=== PATIENT | male | born 1960 | race Caucasian/White ===

== ENCOUNTER 2017-01-10 15:13 | Emergency (ER) | payer SELFPAY ==
[~2017-01-10] VITALS: Ht 167.6 cm; Wt 61.4 kg
[~2017-01-10 15:13] MED LIST: BUSP10 PO; RISP3TAB23 OR; WELL200T PO
[2017-01-10 15:15] VITALS: BP 137/79; PULSE 87; RESP 14; TEMP 98.1; O2SAT 98
== END 2017-01-10 15:22 | disposition left against medical advice (07) ==
LOC: NED 15:13
DX: M54.2 Cervicalgia (principal); Z53.21 Procedure and treatment not carried out due to patient leaving prior to being seen by health care provider
CPT/HCPCS: 99281

== ENCOUNTER 2018-08-09 09:40 | Inpatient (IN) ==
[2018-08-09] MEDS ORDERED: Sod Chloride 0.9% Inj 1,000 ML IV.SIG ONE ×2 (10:30→11:08)
[2018-08-09 10:55] LABS: Baso # (Auto) 0.1 th/mm3 (0.0-0.2); Baso % (Auto) 0.5 % (0.0-2.0); Eos # (Auto) 0.1 th/mm3 (0.0-0.4); Eos % (Auto) 0.3 % (0.0-4.0); Hemoglobin 11.9 gm/dL (13.0-17.0); Lymph # (Auto) 1.5 th/mm3 (1.0-4.8); Mean Corpuscular HGB Conc 32.9 % (32.0-36.0); Mean Platelet Volume 8.2 fL (7.0-11.0); Mono % (Auto) 4.7 % (0.0-8.0); Neut # (Auto) 18.8 th/mm3 (1.8-7.7); Neut % (Auto) 87.5 % (16.0-70.0); Platelet Count 403 th/mm3 (150-450); Red Blood Count 4.09 mil/mm3 (4.50-5.90); Red Cell Distribution Width 13.6 % (11.6-17.2); White Blood Count 21.5 th/mm3 (4.0-11.0)
[2018-08-09] MEDS ORDERED: Acetaminophen 325 MG Tablet PO ONE (11:07)
[2018-08-09] MEDS ORDERED: Morphine Inj 4 MG/ML Vial IV.PUSH ONE (11:15)
--- NOTE | 2018-08-09 11:15 | ED ---
HPI General Chief Complaint: Abdominal Pain Stated Complaint: GI Time Seen by Provider: 08/09/18 10:28 Source: patient, RN notes reviewed and old records reviewed Limitations: no limitations History of Present Illness HPI narrative: 58-year-old male presents to the emergency department for evaluation abdominal pain, fever, chills, diarrhea for 1 week. Patient does not speak. He writes and shakes his head to questions. He does state that he understands me. When asked if he is capable of speaking but chooses not to, he shakes his head yes. The patient does have history of schizophrenia according to the chart. He will not talk at all. The patient denies any chest pain, cough, shortness of breath. He denies nausea and vomiting. He reports right- sided abdominal pain. He denies having chronic medical problems or taking prescribed medications. He denies allergies. He denies alcohol abuse. He denies any drug use. Moderate severity. He denies any previous abdominal surgeries. MD complaint: abdominal pain Onset (ago): week(s) (1) Pain Consistency: constant Location: RUQ and RLQ Severity: moderate Quality: aching Radiation: none Relieving factors: nothing Exacerbating factors: nothing Associated symptoms: diarrhea, fever and chills Related Data Home Medications Medication Instructions Recorded Confirmed No Known Home Medications 08/09/18 08/09/18 Allergies Allergy/AdvReac Type Severity Reaction Status Date / Time No Known Allergies Allergy Unverified 08/09/18 10:08 Review of Systems ROS: all other systems reviewed are negative PMFSH Medical History Medical History Patient denies medical problems (Acute) Surgical History Surgical History No history of previous surgery (Acute) Social History Social History Smoking Status: Former smoker Tobacco Type: Cigarettes How Often Do You Have a Drink Containing Alcohol: Monthly or less Recent Travel in [facility] within the Last 8 Weeks: No Recent Out of Country Travel within the Last 8 Weeks: No Immunization History Tetanus Immunization: Unsure Exam Narrative Exam Narrative: GENERAL: Well-nourished, well-developed male patient, temp of 101.2 SKIN: Focused skin assessment warm/dry. HEAD: Normocephalic. Atraumatic ENT: Mucosa pink and moist. No erythema or exudates. No uvular edema. No uvular , palatal, or tonsillar deviation. Airway patent. Nasal turbinates appear normal without nasal blood, purulent drainage or septal hematoma. Bilateral tympanic membranes clear without erythema or perforation. EYES: No scleral icterus. No injection or drainage. NECK: Supple, trachea midline. No JVD or lymphadenopathy. CARDIOVASCULAR: Regular rate and rhythm without murmurs, gallops, or rubs. RESPIRATORY: Breath sounds equal bilaterally. No accessory muscle use. Lung sounds are clear to auscultation GASTROINTESTINAL: Abdomen soft and nondistended. He grimaces over tenderness to RUQ and RLQ MUSCULOSKELETAL: No cyanosis, or edema. BACK: Nontender without obvious deformity. No CVA tenderness. Course Initial Documented Vital Signs Temperature 101.2 F H 08/09/18 09:58 Pulse Rate 89 08/09/18 09:58 Respiratory Rate 16 08/09/18 09:58 Blood Pressure 111/58 L 08/09/18 09:58 Pulse Oximetry 98 08/09/18 09:58 Last Documented Vital Signs Temperature 101.2 F H 08/09/18 09:58 Pulse Rate 89 08/09/18 09:58 Respiratory Rate 16 08/09/18 09:58 Blood Pressure 111/58 L 08/09/18 09:58 Pulse Oximetry 98 08/09/18 12:07 Medical Decision Making ALEXUS Attestation ALEXUS supervised visit: Yes Attestation: I, Dr. Govea, have reviewed the advance practice practitioner's documentation and am in agreement, met with the patient face to face, made the diagnosis, and the medical decision making was done by me. *My assessment and Findings: This patient is electively mute. He will write. He comes in with a one-week history of abdominal pain associated with some diarrhea. On exam, his abdomen is soft but he does have some tenderness to the lateral aspect of the right mid abdomen. No guarding or rebound. Please see Betsy Sanchez NP's note for a more detailed H&P, final diagnosis and disposition MDM Narrative Medical decision making narrative: 58-year-old male presents to the emergency department for evaluation of abdominal pain, fever, chills, diarrhea for 1 week. He will not speak, but writes and shakes his head to questions. This does limit history. EKG, CBC, CMP, magnesium, lactic acid, lipase, UA, stool for c-diff, influenza, blood cultures x2 are ordered and pending. Chest x-ray and CT abdomen/pelvis with IV contrast ordered and pending. Patient is given normal saline 2 L IV bolus, Morphine 4 mg IV, Zofran 4 mg IV, Tylenol 650 mg PO. EKG shows sinus rhythm, heart rate 68, no acute ST changes. CBC shows leukocytosis of 21.5. CMP shows hyperglycemia 118, no acute abnormality. Magnesium is 1.9. Lactic acid is 0.8. Lipase is 183. UA shows moderate occult blood, rare bacteria. Stool is pending. Influenza is negative. Chest x -ray shows minimal airspace disease in the left lung base, presumably atelectasis. CT abdomen/pelvis shows Complex 4.5 x 3.8 cm mass containing septations in the inferior segment 6 of the liver with adjacent. Pericapsular inflammatory stranding and suspected segmental thrombosed probable hepatic vein branch. Underlying liver parenchyma appears unremarkable without evidence for volume loss. Differential considerations include hepatic abscess versus hepatic malignancy although abscess is favored given the apparently normal appearance of the liver by CT. Correlation with clinical history and laboratory evaluation is recommended. Patient started on vancomycin 1 g IV, Zosyn 3.375 g IV. Patient will be admitted for hepatic abscess, sepsis. Dr. Ho accepted admission. Medical Screen Exam Complete: Yes Emergency Medical Condition: Yes Differential Diagnosis Differential Diagnosis: Cholecystitis versus appendicitis versus diverticulitis versus UTI versus sepsis Medical Records Medical records reviewed: Yes I reviewed the patient's medical records. Lab Data Result diagrams: 08/09/18 10:39 08/09/18 10:39 Lab Results 08/09/18 08/09/18 08/09/18 Range/Units 10:39 10:39 11:28 WBC 21.5 H (4.0-11.0) th/mm3 RBC 4.09 L (4.50-5.90) mil/mm3 Hgb 11.9 L (13.0-17.0) gm/dL Hct 36.0 L (39.0-51.0) % MCV 88.0 (80.0-100.0) fL MCH 29.0 (27.0-34.0) pg MCHC 32.9 (32.0-36.0) % RDW 13.6 (11.6-17.2) % Plt Count 403 (150-450) th/mm3 MPV 8.2 (7.0-11.0) fL Prelim Diff (Auto) Slide review pending Neut % (Auto) 87.5 H (16.0-70.0) % Lymph % (Auto) 7.0 L (9.0-44.0) % [place] % (Auto) 4.7 (0.0-8.0) % Eos % (Auto) 0.3 (0.0-4.0) % Baso % (Auto) 0.5 (0.0-2.0) % Neut # (Auto) 18.8 H (1.8-7.7) th/mm3 Lymph # (Auto) 1.5 (1.0-4.8) th/mm3 [place] # (Auto) 1.0 H (0.0-0.9) th/mm3 Eos # (Auto) 0.1 (0.0-0.4) th/mm3 Baso # (Auto) 0.1 (0.0-0.2) th/mm3 WBC Differential Manual diff final Seg Neuts % (Manual) 80 H (16-70) % Band Neuts % (Manual) 3 (0-6) % Lymphocytes % (Manual) 11 (9-44) % Monocytes % (Manual) 4 (0-8) % Myelocytes % (Man) 1 H (0-0) % Promyelocytes % (Man) 1 H (0-0) % Abs Neuts (Manual) 18.3 H (1.8-7.7) th/mm3 Differential Comment . Platelet Estimate Normal (Normal) Platelet Morphology Normal (Normal) PT 11.0 (9.8-11.6) sec INR 1.1 Ratio APTT 26.6 (24.3-30.1) sec Sodium 135 L (136-145) meq/L Potassium 3.8 (3.5-5.1) meq/L Chloride 101 (98-107) meq/L Carbon Dioxide 24.9 (21.0-32.0) meq/L Anion Gap 9 (5-15) meq/L BUN 13 (7-18) mg/dL Creatinine 0.96 (0.60-1.30) mg/dL Estimated GFR 81 L (>89) mL/min Random Glucose 118 H (74-106) mg/dL Lactic Acid (0.4-2.0) mmol/L Calcium 8.7 (8.5-10.1) mg/dL Magnesium (1.5-2.5) mg/dL Total Bilirubin (0.2-1.0) mg/dL Direct Bilirubin (0.0-0.2) mg/dL Indirect Bilirubin (0.0-0.8) mg/dL AST (15-37) U/L ALT (12-78) U/L Alkaline Phosphatase (45-117) U/L Total Protein (6.4-8.2) g/dL Albumin (3.4-5.0) g/dL Lipase (73-393) U/L Urine Color (Yellw/Straw) Urine Clarity (Clear) Urine pH (5.0-8.5) Ur Specific [place] (1.002-1.035) Urine Protein (Neg-Trace) mg/dL Urine Glucose (UA) (Negative) mg/dL Urine Ketones (Negative) mg/dL Urine Occult Blood (Negative) Urine Nitrate (Negative) Urine Bilirubin (Negative) Urine Urobilinogen (Less than 2) mg/dL Ur Leukocyte Esterase (Negative) Urine RBC (0-3) /hpf Urine WBC (0-5) /hpf Urine Bacteria (None) /hpf Micro UA Comment Ur Microscopic Review Urine Culture Comments 08/09/18 08/09/18 08/09/18 Range/Units 11:28 11:28 12:13 WBC (4.0-11.0) th/mm3 RBC (4.50-5.90) mil/mm3 Hgb (13.0-17.0) gm/dL Hct (39.0-51.0) % MCV (80.0-100.0) fL MCH (27.0-34.0) pg MCHC (32.0-36.0) % RDW (11.6-17.2) % Plt Count (150-450) th/mm3 MPV (7.0-11.0) fL Prelim Diff (Auto) Neut % (Auto) (16.0-70.0) % Lymph % (Auto) (9.0-44.0) % [place] % (Auto) (0.0-8.0) % Eos % (Auto) (0.0-4.0) % Baso % (Auto) (0.0-2.0) % Neut # (Auto) (1.8-7.7) th/mm3 Lymph # (Auto) (1.0-4.8) th/mm3 [place] # (Auto) (0.0-0.9) th/mm3 Eos # (Auto) (0.0-0.4) th/mm3 Baso # (Auto) (0.0-0.2) th/mm3 WBC Differential Seg Neuts % (Manual) (16-70) % Band Neuts % (Manual) (0-6) % Lymphocytes % (Manual) (9-44) % Monocytes % (Manual) (0-8) % Myelocytes % (Man) (0-0) % Promyelocytes % (Man) (0-0) % Abs Neuts (Manual) (1.8-7.7) th/mm3 Differential Comment Platelet Estimate (Normal) Platelet Morphology (Normal) PT (9.8-11.6) sec INR Ratio APTT (24.3-30.1) sec Sodium (136-145) meq/L Potassium (3.5-5.1) meq/L Chloride (98-107) meq/L Carbon Dioxide (21.0-32.0) meq/L Anion Gap (5-15) meq/L BUN (7-18) mg/dL Creatinine (0.60-1.30) mg/dL Estimated GFR (>89) mL/min Random Glucose (74-106) mg/dL Lactic Acid 0.8 (0.4-2.0) mmol/L Calcium (8.5-10.1) mg/dL Magnesium 1.9 (1.5-2.5) mg/dL Total Bilirubin 0.8 (0.2-1.0) mg/dL Direct Bilirubin 0.3 H (0.0-0.2) mg/dL Indirect Bilirubin 0.5 (0.0-0.8) mg/dL AST 30 (15-37) U/L ALT 44 (12-78) U/L Alkaline Phosphatase 148 H (45-117) U/L Total Protein 6.8 (6.4-8.2) g/dL Albumin 2.6 L (3.4-5.0) g/dL Lipase 183 (73-393) U/L Urine Color Straw (Yellw/Straw) Urine Clarity Clear (Clear) Urine pH 6.0 (5.0-8.5) Ur Specific [place] 1.004 (1.002-1.035) Urine Protein Negative (Neg-Trace) mg/dL Urine Glucose (UA) Negative (Negative) mg/dL Urine Ketones Negative (Negative) mg/dL Urine Occult Blood Moderate H (Negative) Urine Nitrate Negative (Negative) Urine Bilirubin Negative (Negative) Urine Urobilinogen Less than 2 (Less than 2) mg/dL Ur Leukocyte Esterase Negative (Negative) Urine RBC 3 (0-3) /hpf Urine WBC 1 (0-5) /hpf Urine Bacteria Rare H (None) /hpf Micro UA Comment Culture not ind Ur Microscopic Review Not Reportable Urine Culture Comments Culture not ind Imaging Data Radiologist's impression: Chest X-Ray 08/09/18 11:07 CONCLUSION: 1. Minimal airspace disease at the left lung base, presumably atelectasis. Abdomen/Pelvis CT 08/09/18 11:08 CONCLUSION: 1. Complex 4.5 x 3.8 cm mass containing septations in the inferior segment 6 of the liver with adjacent. Pericapsular inflammatory stranding and suspected segmental thrombosed probable hepatic vein branch. Underlying liver parenchyma appears unremarkable without evidence for volume loss. Differential considerations include hepatic abscess versus hepatic malignancy although abscess is favored given the apparently normal appearance of the liver by CT. Correlation with clinical history and laboratory evaluation is recommended. Discharge Plan Discharge Disposition Patient Disposition: 30 Still Patient Discharge Details Diagnosis: Abscess, hepatic, Sepsis Physicians Team ED Provider: Jackie Govea ED Midlevel Provider: Betsy Sanchez Primary Care Provider: UNKNOWN, Rxs /Orders / Referrals /Forms Prescriptions: No Action No Known Home Medications RF: 0 Status ED Status: Admitted Patient
[2018-08-09 11:20] LABS: Calcium 8.7 mg/dL (8.5-10.1); Carbon Dioxide 24.9 meq/L (21.0-32.0); Potassium 3.8 meq/L (3.5-5.1)
[2018-08-09 11:50] LABS: Activated Partial Thrombo Time 26.6 sec (24.3-30.1); INR 1.1 Ratio
[2018-08-09 11:53] LABS: Lymphocytes 11 % (9-44); Monocytes 4 % (0-8); Myelocytes 1 % (0-0); Promyelocyte 1 % (0-0)
[2018-08-09 11:57] LABS: Albumin 2.6 g/dL (3.4-5.0); Magnesium 1.9 mg/dL (1.5-2.5)
[2018-08-09 11:59] LABS: Total Protein 6.8 g/dL (6.4-8.2)
[2018-08-09 12:05] LABS: Platelet Estimate Normal (Normal); Platelet Morphology Normal (Normal)
[2018-08-09 12:31] LABS: Bacteria,Urine Rare /hpf; Bilirubin,Urine Negative (Negative); Clarity,Urine Clear (Clear); Color,Urine Straw (Yellw/Straw); Glucose,Urine (UA) Negative (Negative); Leukocyte Esterase,Urine Negative (Negative); Nitrite,Urine Negative (Negative); Specific Gravity,Urine 1.004 (1.002-1.035)
--- NOTE | 2018-08-09 13:03 | XR ---
EXAM DATE: 08/09/2018 11:07 AM EDT AGE/SEX: 58 years / Male INDICATIONS: Right upper quadrant pain. CLINICAL DATA: This is the patient's initial encounter. Patient reports that signs and symptoms have been present for 1 day and indicates a pain score of 7/10. MEDICAL/SURGICAL HISTORY: . . COMPARISON: . FINDINGS: Minimal left lung base airspace disease. The cardiomediastinal contours are unremarkable. Osseous st ructures are intact. CONCLUSION: 1. Minimal airspace disease at the left lung base, presumably atelectasis. Electronically signed by: Azeem Ugarte MD 08/09/2018 1:02 PM EDT
--- NOTE | 2018-08-09 13:21 | CT ---
EXAM DATE: 08/09/2018 12:07 PM EDT AGE/SEX: 58 years / Male INDICATIONS: Abdomen pain, diarrhea for 1 week CLINICAL DATA: This is the patient's initial encounter. Patient reports that signs and symptoms have been present for 1 week and indicates a pain score of 4/10. MEDICAL/SURGICAL HISTORY: None. None. ORAL CONTRAST: No oral contrast ingested. RADIATION DOSE: 5.37 CTDI (mGy) COMPARISON: [facility] [place], CT ABDOMEN & PELVIS W CONTRAST, 07/23/2015. . TECHNIQUE: Multiple contiguous axial images were obtained through the abdomen and pelvis following b olus infusion of 70 ml Omnipaque 350 (iohexol) nonionic water-soluble contrast as a single exam dos e. No oral contrast ingested. Using automated exposure control and adjustment of the mA and/or kV ac cording to patient size, radiation dose was kept as low as reasonably achievable to obtain optimal di agnostic quality images. DICOM format image data is available electronically for review and comparis on. FINDINGS: LOWER LUNGS: Mild groundglass opacities at the lung bases. LIVER: 4.5 x 3.8 cm hypodense mass containing septations inferiorly in segment 6 of the liver. There is mild adjacent pericapsular inflammatory stranding with a suspected segmental thrombosed probable hepatic vein branch. Liver parenchyma appears unremarkable by CT without evidence for volume loss. Ma in portal vein is patent. Gallbladder is decompressed. SPLEEN: Homogeneous density without enlargement. PANCREAS: Unremarkable without mass or calcification. KIDNEYS: Kidneys demonstrate symmetrical enhancement and are symmetrical in size without evidence fo r radiopaque renal calculi or hydronephrosis. ADRENAL GLANDS: Unremarkable. AORTA: Leeann-aneurysmal. BOWEL/MESENTERY: The bowel loops are grossly unremarkable. The cecum and sigmoid colon have a maine l configuration. Appendix is visualized and normal in appearance. No free fluid or drainable fluid co llections in the abdomen. No pneumatosis. ABDOMINAL WALL: Small fat-containing right inguinal hernia. RETROPERITONEUM: Multiple subcentimeter retroperitoneal lymph nodes which do not meet CT size criter ia but are notable for number. BLADDER: Contours are smooth. REPRODUCTIVE: No abnormal masses or calcifications seen. BONY STRUCTURES: Unremarkable. CONCLUSION: 1. Complex 4.5 x 3.8 cm mass containing septations in the inferior segment 6 of the liver with adjac ent. Pericapsular inflammatory stranding and suspected segmental thrombosed probable hepatic vein bra nch. Underlying liver parenchyma appears unremarkable without evidence for volume loss. Differential considerations include hepatic abscess versus hepatic malignancy although abscess is favored given th e apparently normal appearance of the liver by CT. Correlation with clinical history and laboratory e valuation is recommended. Electronically signed by: Azeem Ugarte MD 08/09/2018 1:20 PM EDT
[2018-08-09] MEDS ORDERED: Vancomycin Inj 1,000 MG in Sodium Chlor 0.9% Inj 250 ML IV.SIG ONE (13:23)
[2018-08-09] MEDS ORDERED: Piperacil/Tazo 3.375 GM Premix 50 ML IV.SIG ONE (13:23)
[2018-08-09] MEDS ORDERED: Bisacodyl 10 MG Supp RECTAL PRN (14:48)
[2018-08-09] MEDS ORDERED: Vancomycin Consult Pharmacy OTHER PRN (14:53)
[2018-08-09] MEDS ORDERED: Vancomycin Inj 1 GM/200 ML PIGGYBACK IV.SIG SCH (15:00)
--- NOTE | 2018-08-09 15:35 | P.HP ---
History of Present Illness Primary Care Physician: UNKNOWN History of Present Illness: 58-year-old male with past medical history of schizophrenia presents to the emergency department for evaluation abdominal pain, fever, chills, diarrhea for 1 week. Patient does not speak. He writes and shakes his head to questions with yes/no. He does state that he understands me. When asked if he is capable of speaking but chooses not to, he shakes his head yes. The patient does have history of schizophrenia according to the chart. Patient says he does not know the name of the medications, but he reports compliance of taking his medications for schizophrenia. He will not talk at all. The patient denies any chest pain, cough, shortness of breath. He denies nausea and vomiting. He reports right-sided - RUQ abdominal pain. He has diarrhea 3 times overnight and one time in the morning no blood in it. Associated fevers and chills. He denies having any other chronic medical problems. He denies allergies. He denies alcohol abuse. He denies any drug use. Moderate severity. He denies any previous abdominal surgeries. Inpatient Certification: I certify that the inpatient services were ordered in accordance with Medicare regulations governing the order. This includes certification that hospital inpatient services are reasonable and necessary and in the case of services not specified as inpatient-only under 42 CFR 419.22(n), that they are appropriately provided as inpatient services in accordance to with the 2-midnight benchmark under 43 CFR 412.3(e) Estimated Total Length of Stay (Days): 4 Plans for Post Hospital Care: Not yet determined Review of Systems All other systems reviewed negative except as stated [facility] - History History Provided By: Patient - Medical History Medical History: Medical History (Last Reviewed 08/09/18 @ 18:12 by Shu Ho MD) GERD (gastroesophageal reflux disease) Hematuria Schizophrenia - Surgical History Surgical History: Surgical History (Last Reviewed 08/09/18 @ 15:34 by Shu Ho MD) No history of previous surgery - Family History Family History: Family History (Last Updated 08/09/18 @ 15:34 by Shu Ho MD) Other Family history normal - Tobacco History Tobacco Use In Past 30 Days: No Smoking Status: Former smoker Tobacco Type: Cigarettes - Alcohol History How Often Do You Have a Drink Containing Alcohol: Monthly or less - Travel History Recent Travel in the [place] Within the Last 8 Weeks: No Recent Travel Out of the Country Within the Last 8 Weeks: No - Immunization History Tetanus Immunization: Unsure Medications and Allergies Active Medications: Active Medications Acetaminophen (Tylenol) 650 mg PO Q4H PRN PRN Reason: Temp > 100.4 Al Hydroxide/Mg Hydroxide (Milk Of Magnesia Liq) 30 ml PO Q12H PRN PRN Reason: Mild Constipation Bisacodyl (Dulcolax Supp) 10 mg RECTAL DAILY PRN PRN Reason: SEVERE CONSITIPATION Sodium Chloride (Ns Inj) 1,000 mls @ 100 mls/hr IV.CONT .Q10H MAL Vancomycin/Sodium Chloride (Vancomycin Inj) 1 gm in 200 mls @ 200 mls/hr IV.SIG Q12H MAL Piperacillin/Tazobactam/Dextrose (Zosyn 4.5 Gm Premix) 4.5 gm in 100 mls @ 200 mls/hr IV.SIG Q6H MAL Lactulose (Lactulose Liq) 30 ml PO DAILY PRN PRN Reason: SEVERE CONSITIPATION Ondansetron HCl (Zofran Inj) 4 mg IV.PUSH Q6H PRN PRN Reason: NAUSEA OR VOMITING Pharmacy Profile Note (Vancomycin Consult Pharmacy) 1 each OTHER UNSCH PRN PRN Reason: Pharmacy to dose Senna/Docusate Sodium (Valencia-Colace) 1 tab PO BID MAL Sennosides (Senokot) 17.2 mg PO Q12H PRN PRN Reason: Moderate Constipation Sodium Chloride (Ns Flush) 2 ml IV.FLUSH PRN PRN PRN Reason: FLUSH AFTER USING IV ACCESS Allergies Allergy/AdvReac Type Severity Reaction Status Date / Time No Known Allergies Allergy Unverified 08/09/18 10:08 Home Medications Medication Instructions Recorded Confirmed Type No Known Home Medications 08/09/18 08/09/18 History Exam Vital signs: Vital Signs 08/09/18 09:58 08/09/18 12:07 08/09/18 14:35 Temperature 101.2 F H Pulse Rate 89 72 Respiratory Rate 16 16 Blood Pressure 111/58 L 108/61 Pulse Oximetry 98 98 99 Intake & Output 08/08/18 08/09/18 08/09/18 18:59 06:59 18:59 Intake Total 2049 Balance 2050 / 2050 Weight 71 kg Intake: IV 2049 Zosyn 3.375 GM Premix 50 ML @ 50 / 50 100 mls/hr IV.SIG ONCE ONE Rx#: [id number] NS Inj 1,000 ML @ Wide Open IV. 1999 SIG BOLUS ONE Rx#:[id number] Narrative: GENERAL: 58 yo male, with chills. Not talking but is communicating by shaking his head yes and no and also by writing. SKIN: Warm and dry. HEAD: Atraumatic. Normocephalic. EYES: Pupils equal and round. No scleral icterus. No injection or drainage. ENT: No nasal bleeding or discharge. Mucous membranes pink and moist. NECK: Trachea midline. No JVD. CARDIOVASCULAR: Regular rate and rhythm. RESPIRATORY: No accessory muscle use. Clear to auscultation. Breath sounds equal bilaterally. GASTROINTESTINAL: Abdomen soft, tenderness with palpation on right upper quadrant, nondistended. MUSCULOSKELETAL: Extremities without clubbing, cyanosis, or edema. No obvious deformities. NEUROLOGICAL: Awake and alert. No obvious cranial nerve deficits. Motor grossly within normal limits. Five out of 5 muscle strength in the arms and legs. Normal speech. PSYCHIATRIC: Not talking but is communicating by shaking his head yes and no and also by writing. Results - Labs CBC & Chem 7: 08/09/18 10:39 08/09/18 10:39 Labs: Laboratory Results - last 24 hr 08/09/18 08/09/18 08/09/18 10:39 10:39 11:28 WBC 21.5 H RBC 4.09 L Hgb 11.9 L Hct 36.0 L MCV 88.0 MCH 29.0 MCHC 32.9 RDW 13.6 Plt Count 403 MPV 8.2 Prelim Diff (Auto) Slide review pending Neut % (Auto) 87.5 H Lymph % (Auto) 7.0 L [place] % (Auto) 4.7 Eos % (Auto) 0.3 Baso % (Auto) 0.5 Neut # (Auto) 18.8 H Lymph # (Auto) 1.5 [place] # (Auto) 1.0 H Eos # (Auto) 0.1 Baso # (Auto) 0.1 WBC Differential Manual diff final Seg Neuts % (Manual) 80 H Band Neuts % (Manual) 3 Lymphocytes % (Manual) 11 Monocytes % (Manual) 4 Myelocytes % (Man) 1 H Promyelocytes % (Man) 1 H Abs Neuts (Manual) 18.3 H Differential Comment . Platelet Estimate Normal Platelet Morphology Normal PT 11.0 INR 1.1 APTT 26.6 Sodium 135 L Potassium 3.8 Chloride 101 Carbon Dioxide 24.9 Anion Gap 9 BUN 13 Creatinine 0.96 Estimated GFR 81 L Random Glucose 118 H Lactic Acid Calcium 8.7 Magnesium Total Bilirubin Direct Bilirubin Indirect Bilirubin AST ALT Alkaline Phosphatase Total Protein Albumin Lipase Urine Color Urine Clarity Urine pH Ur Specific [place] Urine Protein Urine Glucose (UA) Urine Ketones Urine Occult Blood Urine Nitrate Urine Bilirubin Urine Urobilinogen Ur Leukocyte Esterase Urine RBC Urine WBC Urine Bacteria Micro UA Comment Ur Microscopic Review Urine Culture Comments 08/09/18 08/09/18 08/09/18 11:28 11:28 12:13 WBC RBC Hgb Hct MCV MCH MCHC RDW Plt Count MPV Prelim Diff (Auto) Neut % (Auto) Lymph % (Auto) [place] % (Auto) Eos % (Auto) Baso % (Auto) Neut # (Auto) Lymph # (Auto) [place] # (Auto) Eos # (Auto) Baso # (Auto) WBC Differential Seg Neuts % (Manual) Band Neuts % (Manual) Lymphocytes % (Manual) Monocytes % (Manual) Myelocytes % (Man) Promyelocytes % (Man) Abs Neuts (Manual) Differential Comment Platelet Estimate Platelet Morphology PT INR APTT Sodium Potassium Chloride Carbon Dioxide Anion Gap BUN Creatinine Estimated GFR Random Glucose Lactic Acid 0.8 Calcium Magnesium 1.9 Total Bilirubin 0.8 Direct Bilirubin 0.3 H Indirect Bilirubin 0.5 AST 30 ALT 44 Alkaline Phosphatase 148 H Total Protein 6.8 Albumin 2.6 L Lipase 183 Urine Color Straw Urine Clarity Clear Urine pH 6.0 Ur Specific [place] 1.004 Urine Protein Negative Urine Glucose (UA) Negative Urine Ketones Negative Urine Occult Blood Moderate H Urine Nitrate Negative Urine Bilirubin Negative Urine Urobilinogen Less than 2 Ur Leukocyte Esterase Negative Urine RBC 3 Urine WBC 1 Urine Bacteria Rare H Micro UA Comment Culture not ind Ur Microscopic Review Not Reportable Urine Culture Comments Culture not ind - Imaging Impressions Chest X-Ray 08/09/18 11:07 CONCLUSION: 1. Minimal airspace disease at the left lung base, presumably atelectasis. Abdomen/Pelvis CT 08/09/18 11:08 CONCLUSION: 1. Complex 4.5 x 3.8 cm mass containing septations in the inferior segment 6 of the liver with adjacent. Pericapsular inflammatory stranding and suspected segmental thrombosed probable hepatic vein branch. Underlying liver parenchyma appears unremarkable without evidence for volume loss. Differential considerations include hepatic abscess versus hepatic malignancy although abscess is favored given the apparently normal appearance of the liver by CT. Correlation with clinical history and laboratory evaluation is recommended. Caprini VTE Risk Assessment Caprini VTE Risk Assessment: Moderate/High Risk (score >= 2) Caprini Risk Assessment Model: Point Value = 1 Point Value = 2 Point Value = 3 Point Value = 5 Age 41-60 Minor surgery BMI > 25 kg/m2 Swollen legs Varicose veins or History of unexplained or recurrent spontaneous Oral contraceptives or hormone replacement Sepsis (< 1 month) Serious lung disease, including pneumonia (< 1 month) Abnormal pulmonary function Acute myocardial infarction Congestive heart failure (< 1 month) History of inflammatory bowel disease Medical patient at bed rest Age 61-74 Arthroscopic surgery Major open surgery (> 45 min) Laparoscopic surgery (> 45 min) Malignancy Confined to bed (> 72 hours) Immobilizing plaster cast Central venous access Age >= 75 History of VTE Family history of VTE Factor V Leiden Prothrombin [id number] Lupus anticoagulant Anticardiolipin antibodies Elevated serum homocysteine Heparin-induced thrombocytopenia Other congenital or acquired thrombophilia Stroke (< 1 month) Elective arthroplasty Hip, pelvis, or leg fracture Acute spinal cord injury (< 1 month) Prophylaxis Regimen: Total Risk Factor Score Risk Level Prophylaxis Regimen 0-1 Low Early ambulation 2 Moderate Order ONE of the following: *Sequential Compression Device (SCD) *Heparin 5000 units SQ BID 3-4 Higher Order ONE of the following medications: *Heparin 5000 units SQ TID *Enoxaparin/Lovenox 40 mg SQ daily (WT < 150 kg, CrCl > 30 mL/min) *Enoxaparin/Lovenox 30 mg SQ daily (WT < 150 kg, CrCl > 10-29 mL/min) *Enoxaparin/Lovenox 30 mg SQ BID (WT < 150 kg, CrCl > 30 mL/min) AND/OR *Sequential Compression Device (SCD) 5 or more Highest Order ONE of the following medications: *Heparin 5000 units SQ TID (Preferred with Epidurals) *Enoxaparin/Lovenox 40 mg SQ daily (WT < 150 kg, CrCl > 30 mL/min) *Enoxaparin/Lovenox 30 mg SQ daily (WT < 150 kg, CrCl > 10-29 mL/min) *Enoxaparin/Lovenox 30 mg SQ BID (WT < 150 kg, CrCl > 30 mL/min) AND *Sequential Compression Device (SCD) Assessment and Plan - Plan 58-year-old male with With sepsis meeting criteria patient with fevers, leukocytosis, tachycardia, possible liver abscess. Liver abscess. Patient presented with right upper quadrant abdominal pain, fever chills, nausea and diarrhea. LA normal at admission Chest X-Ray reviewed Minimal airspace disease at the left lung base, likely atelectasis. Abdomen/Pelvis CT reviewed and findings discussed with ED physician and also with the patient 1. Complex 4.5 x 3.8 cm mass containing septations in the inferior segment 6 of the liver with adjacent. Pericapsular inflammatory stranding and suspected segmental thrombosed probable hepatic vein branch. Underlying liver parenchyma appears unremarkable without evidence for volume loss. Differential considerations include hepatic abscess versus hepatic malignancy although abscess is favored given the apparently normal appearance of the liver by CT. Blood cultures obtained in the ED follow up results Started on IV abx vancomycin and Zosyn ID consulted for eval Consult IR for poss CT guided aspiration Pain meds per pain scale Tylenol for fevers H/o schizophrenia. Patient chooses not to talk but communicated by writing and nodding yes/ no . Says he doesn't know the name of the meds he is taking, but he is compliant with meds. Will consult psychiatry for evaluation and recommendations. DVT ppx SCD/TEDS/ ambulation
[2018-08-09] MEDS: Sod Chloride 0.9% Inj 1,000 ML IV.CONT SCH (15:59)
[2018-08-09] MEDS: Acetaminophen 325 MG Tablet PO PRN (16:41)
--- NOTE | 2018-08-09 17:54 | P.CONID ---
History of Present Illness Service: Infectious disease Consult date: 08/09/18 Requesting Physician: Shu Ho Reason for Consult: Evaluate patient with liver abscess Primary Care Provider: UNKNOWN History of Present Illness: Patient seen and examined. Records reviewed. Patient is a 58-year-old male, presented to the hospital complaining of one- week history of right-sided abdominal pain, fever and chills, and diarrhea. He denies any nausea or vomiting. He denies any prior history of abdominal pain. Denies any fatty food intolerance. He denies any urinary complaint. He has not had any skin infection. Denies any IV drug use. Denies any respiratory complaint. He has never had any gallbladder problem. Denies any prior history of alternating constipation or diarrhea. Since admission patient has been febrile up to 102. He complains of right-sided abdominal pain. CT of the abdomen and pelvis is showing a complex fluid collection in the liver. No gallbladder abnormality noted. No colon abnormality seen. His WBC is greater than 20,000. His LFTs are okay. Infectious disease consultation has been requested to evaluate the patient. Review of Systems Constitutional: Reports anorexia, Reports chills, Reports fever(s), Reports lack of energy, Reports night sweats Eyes: Denies discharge, Denies dry eyes Ears, Nose, Mouth, and Throat: Denies difficulty swallowing, Denies ear pain, Denies facial pain, Denies nasal discharge, Denies sore throat Cardiovascular: Denies chest pain, Denies leg swelling, Denies shortness of breath Respiratory: Denies chest congestion, Denies cough, Denies shortness of breath Gastrointestinal: Reports abdominal pain, Reports loose stools, Denies difficulty swallowing, Denies heartburn, Denies nausea, Denies pain with swallowing, Denies vomiting Genitourinary: Denies difficulty urinating, Denies genital pain, Denies painful urination Musculoskeletal: Denies joint pain, Denies joint swelling Skin/Breast: Denies rash, Denies sores Neurologic: Denies dizziness, Denies localized weakness PMFSH - History History Provided By: Patient - Medical History Medical History: Medical History (Last Updated 08/09/18 @ 18:10 by Keyona Lechuga MD) GERD (gastroesophageal reflux disease) Hematuria Schizophrenia - Family History Family History: Family History (Last Reviewed 08/09/18 @ 18:10 by Keyona Lechuga MD) Other Family history normal - Tobacco History Tobacco Use In Past 30 Days: Yes (less than a pack a day) Smoking Status: Former smoker Tobacco Type: Cigarettes - Alcohol History How Often Do You Have a Drink Containing Alcohol: Monthly or less - Travel History Recent Travel in the [place] Within the Last 8 Weeks: No Recent Travel Out of the Country Within the Last 8 Weeks: No - Immunization History Tetanus Immunization: Unsure Medications and Allergies Active Medications: Active Medications Acetaminophen (Tylenol) 650 mg PO Q4H PRN PRN Reason: Temp > 100.4 Last Admin: 08/09/18 16:41 Dose: 650 mg Al Hydroxide/Mg Hydroxide (Milk Of Magnesia Liq) 30 ml PO Q12H PRN PRN Reason: Mild Constipation Bisacodyl (Dulcolax Supp) 10 mg RECTAL DAILY PRN PRN Reason: SEVERE CONSITIPATION Sodium Chloride (Ns Inj) 1,000 mls @ 100 mls/hr IV.CONT .Q10H MAL Last Admin: 08/09/18 15:59 Dose: 100 mls/hr Vancomycin/Sodium Chloride (Vancomycin Inj) 1 gm in 200 mls @ 200 mls/hr IV.SIG Q12H MAL Piperacillin/Tazobactam/Dextrose (Zosyn 4.5 Gm Premix) 4.5 gm in 100 mls @ 200 mls/hr IV.SIG Q6H MAL Lactulose (Lactulose Liq) 30 ml PO DAILY PRN PRN Reason: SEVERE CONSITIPATION Ondansetron HCl (Zofran Inj) 4 mg IV.PUSH Q6H PRN PRN Reason: NAUSEA OR VOMITING Pharmacy Profile Note (Vancomycin Consult Pharmacy) 1 each OTHER UNSCH PRN PRN Reason: Pharmacy to dose Senna/Docusate Sodium ([place]-Colace) 1 tab PO BID MAL Sennosides (Senokot) 17.2 mg PO Q12H PRN PRN Reason: Moderate Constipation Sodium Chloride (Ns Flush) 2 ml IV.FLUSH PRN PRN PRN Reason: FLUSH AFTER USING IV ACCESS Allergies Allergy/AdvReac Type Severity Reaction Status Date / Time No Known Allergies Allergy Unverified 08/09/18 10:08 Home Medications Medication Instructions Recorded Confirmed Type No Known Home Medications 08/09/18 08/09/18 History Exam Vital signs: Vital Signs 08/09/18 09:58 08/09/18 12:07 08/09/18 14:35 Temperature 101.2 F H Pulse Rate 89 72 Respiratory Rate 16 16 Blood Pressure 111/58 L 108/61 Pulse Oximetry 98 98 99 08/09/18 16:00 Temperature 102.5 F H Pulse Rate 87 Respiratory Rate 18 Blood Pressure 131/69 Pulse Oximetry 98 Intake & Output 08/08/18 08/09/18 08/09/18 18:59 06:59 18:59 Intake Total 2300 / 2300 Balance 2300 / 2300 Weight 71 kg Intake: IV 2300 / 2300 Zosyn 3.375 GM Premix 50 ML @ 50 / 50 100 mls/hr IV.SIG ONCE ONE Rx#: [id number] NS Inj 1,000 ML @ Wide Open IV. 1999 / 1999 SIG BOLUS ONE Rx#:[id number] Vancomycin Inj 1,000 MG In NS 250 / 250 Inj 250 ML @ 250 mls/hr IV.SIG ONCE ONE Rx#:[id number] Narrative: Physical Examination GENERAL: Patient is a well-nourished, well-developed male, awake and alert, not in respiratory distress. He does not look toxic appearing. SKIN: Warm and dry. No generalized rash, no ecchymoses and no evidence of embolic lesions. HEAD: Atraumatic. Normocephalic. No temporal wasting, or tenderness. EYES: [place] conjunctiva. No petechia or hemorrhage. Pupils equal, round and reactive to light. Extraocular movements full and intact. No scleral icterus. No injection or drainage. EARS, NOSE AND THROAT: Nose without bleeding or purulent nasal discharge. No sinus tenderness. Mucous membranes pink and moist. No oral lesions noted. No exudate. No oral thrush. NECK: Trachea midline. Supple and not tender, no meningeal signs CARDIOVASCULAR: Regular rate and rhythm. No murmurs, rubs or gallops heard RESPIRATORY: Clear to auscultation. Breath sounds equal bilaterally. No rales , wheezing or rhonchi ABDOMEN: Soft, nondistended, has mild right-sided tenderness. No guarding or rebound. Bowel sounds present and normoactive. No organomegaly. EXTREMITIES: No clubbing, cyanosis, or edema.No joint effusion, has good ROM. No calf tenderness. Well perfused and warm. NEUROLOGICAL: Awake and alert. Cranial nerves grossly intact. Motor grossly within normal limits. Patient does not speak. He writes is how he communicates. PSYCHIATRIC: Normal affect, calm and cooperative. LINE: No evidence of infection Results - Labs CBC & Chem 7: 08/09/18 10:39 08/09/18 10:39 Labs: Laboratory Results - last 24 hr 08/09/18 08/09/18 08/09/18 10:39 10:39 11:28 WBC 21.5 H RBC 4.09 L Hgb 11.9 L Hct 36.0 L MCV 88.0 MCH 29.0 MCHC 32.9 RDW 13.6 Plt Count 403 MPV 8.2 Prelim Diff (Auto) Slide review pending Neut % (Auto) 87.5 H Lymph % (Auto) 7.0 L [place] % (Auto) 4.7 Eos % (Auto) 0.3 Baso % (Auto) 0.5 Neut # (Auto) 18.8 H Lymph # (Auto) 1.5 [place] # (Auto) 1.0 H Eos # (Auto) 0.1 Baso # (Auto) 0.1 WBC Differential Manual diff final Seg Neuts % (Manual) 80 H Band Neuts % (Manual) 3 Lymphocytes % (Manual) 11 Monocytes % (Manual) 4 Myelocytes % (Man) 1 H Promyelocytes % (Man) 1 H Abs Neuts (Manual) 18.3 H Differential Comment . Platelet Estimate Normal Platelet Morphology Normal PT 11.0 INR 1.1 APTT 26.6 Sodium 135 L Potassium 3.8 Chloride 101 Carbon Dioxide 24.9 Anion Gap 9 BUN 13 Creatinine 0.96 Estimated GFR 81 L Random Glucose 118 H Lactic Acid Calcium 8.7 Magnesium Total Bilirubin Direct Bilirubin Indirect Bilirubin AST ALT Alkaline Phosphatase Total Protein Albumin Lipase Urine Color Urine Clarity Urine pH Ur Specific [place] Urine Protein Urine Glucose (UA) Urine Ketones Urine Occult Blood Urine Nitrate Urine Bilirubin Urine Urobilinogen Ur Leukocyte Esterase Urine RBC Urine WBC Urine Bacteria Micro UA Comment Ur Microscopic Review Urine Culture Comments Stl C.difficile Tox PCR St C. diff Tox Epid 027 08/09/18 08/09/18 08/09/18 11:28 11:28 12:13 WBC RBC Hgb Hct MCV MCH MCHC RDW Plt Count MPV Prelim Diff (Auto) Neut % (Auto) Lymph % (Auto) [place] % (Auto) Eos % (Auto) Baso % (Auto) Neut # (Auto) Lymph # (Auto) [place] # (Auto) Eos # (Auto) Baso # (Auto) WBC Differential Seg Neuts % (Manual) Band Neuts % (Manual) Lymphocytes % (Manual) Monocytes % (Manual) Myelocytes % (Man) Promyelocytes % (Man) Abs Neuts (Manual) Differential Comment Platelet Estimate Platelet Morphology PT INR APTT Sodium Potassium Chloride Carbon Dioxide Anion Gap BUN Creatinine Estimated GFR Random Glucose Lactic Acid 0.8 Calcium Magnesium 1.9 Total Bilirubin 0.8 Direct Bilirubin 0.3 H Indirect Bilirubin 0.5 AST 30 ALT 44 Alkaline Phosphatase 148 H Total Protein 6.8 Albumin 2.6 L Lipase 183 Urine Color Straw Urine Clarity Clear Urine pH 6.0 Ur Specific [place] 1.004 Urine Protein Negative Urine Glucose (UA) Negative Urine Ketones Negative Urine Occult Blood Moderate H Urine Nitrate Negative Urine Bilirubin Negative Urine Urobilinogen Less than 2 Ur Leukocyte Esterase Negative Urine RBC 3 Urine WBC 1 Urine Bacteria Rare H Micro UA Comment Culture not ind Ur Microscopic Review Not Reportable Urine Culture Comments Culture not ind Stl C.difficile Tox PCR St C. diff Tox Epid 027 08/09/18 15:56 WBC RBC Hgb Hct MCV MCH MCHC RDW Plt Count MPV Prelim Diff (Auto) Neut % (Auto) Lymph % (Auto) [place] % (Auto) Eos % (Auto) Baso % (Auto) Neut # (Auto) Lymph # (Auto) [place] # (Auto) Eos # (Auto) Baso # (Auto) WBC Differential Seg Neuts % (Manual) Band Neuts % (Manual) Lymphocytes % (Manual) Monocytes % (Manual) Myelocytes % (Man) Promyelocytes % (Man) Abs Neuts (Manual) Differential Comment Platelet Estimate Platelet Morphology PT INR APTT Sodium Potassium Chloride Carbon Dioxide Anion Gap BUN Creatinine Estimated GFR Random Glucose Lactic Acid Calcium Magnesium Total Bilirubin Direct Bilirubin Indirect Bilirubin AST ALT Alkaline Phosphatase Total Protein Albumin Lipase Urine Color Urine Clarity Urine pH Ur Specific [place] Urine Protein Urine Glucose (UA) Urine Ketones Urine Occult Blood Urine Nitrate Urine Bilirubin Urine Urobilinogen Ur Leukocyte Esterase Urine RBC Urine WBC Urine Bacteria Micro UA Comment Ur Microscopic Review Urine Culture Comments Stl C.difficile Tox PCR Negative St C. diff Tox Epid 027 Negative - Imaging Impressions Chest X-Ray 08/09/18 11:07 CONCLUSION: 1. Minimal airspace disease at the left lung base, presumably atelectasis. Abdomen/Pelvis CT 08/09/18 11:08 CONCLUSION: 1. Complex 4.5 x 3.8 cm mass containing septations in the inferior segment 6 of the liver with adjacent. Pericapsular inflammatory stranding and suspected segmental thrombosed probable hepatic vein branch. Underlying liver parenchyma appears unremarkable without evidence for volume loss. Differential considerations include hepatic abscess versus hepatic malignancy although abscess is favored given the apparently normal appearance of the liver by CT. Correlation with clinical history and laboratory evaluation is recommended. Assessment and Plan - Plan Impression Sepsis on admission due to liver process Liver abscess, likely pyogenic abscess - no obvious GB pathology or colon pathology - ?IE Known schizophrenia ?Endocarditis with seeding Recommendation Agree with current empiric antibiotics Continue Zosyn Continue Vanco Follow cultures Get echo We will discuss with radiology regarding percutaneous drainage of the fluid collection Follow temps Monitor progress I will determine course of antibiotic once workup is completed I will follow along with you Thank you for this consultation
[2018-08-09] MEDS ORDERED: Ibuprofen 400 MG Tablet PO PRN ×2 (18:08→18:14)
--- NOTE | 2018-08-09 20:18 | ECG ---
Date Performed: 08/09/2018 Time Performed: 13:04:00 PTAGE: 58 years EKG: Sinus rhythm NORMAL ECG PREVIOUS TRACING : 10/21/2014 09.17 Since the previous tracing, no significant change noted DOCTOR: Flex Baez Interpretating Date/Time 08/09/2018 20:17:04
[2018-08-09] MEDS: Piperacil/Tazo 4.5 GM Premix 4.5 GM/100 ML BAG IV.SIG SCH (21:52)
[2018-08-09] MEDS: Senna/Docusate Sodium 8.6/50 MG Tablet PO SCH (21:52)
[2018-08-10] MEDS ORDERED: Vancomycin Inj 900 MG in Sodium Chlor 0.9% Inj 250 ML IV.SIG SCH (02:00)
[2018-08-10] MEDS: Piperacil/Tazo 4.5 GM Premix 4.5 GM/100 ML BAG IV.SIG SCH ×4 (02:47→21:35)
[2018-08-10] MEDS: Sod Chloride 0.9% Inj 1,000 ML IV.CONT SCH ×2 (02:48→11:12)
[2018-08-10 07:05] LABS: Baso # (Auto) 0.1 th/mm3 (0.0-0.2); Baso % (Auto) 0.7 % (0.0-2.0); Eos # (Auto) 0.2 th/mm3 (0.0-0.4); Eos % (Auto) 0.9 % (0.0-4.0); Hematocrit 34.2 % (39.0-51.0); Hemoglobin 11.3 gm/dL (13.0-17.0); Lymph # (Auto) 1.5 th/mm3 (1.0-4.8); Lymph % (Auto) 8.5 % (9.0-44.0); Mean Corpuscular HGB Conc 33.2 % (32.0-36.0); Mean Corpuscular Hemoglobin 29.4 pg (27.0-34.0); Mean Corpuscular Volume 88.7 fL (80.0-100.0); Mean Platelet Volume 8.2 fL (7.0-11.0); Mono # (Auto) 1.2 th/mm3 (0.0-0.9); Mono % (Auto) 6.8 % (0.0-8.0); Neut # (Auto) 14.5 th/mm3 (1.8-7.7); Neut % (Auto) 83.1 % (16.0-70.0); Platelet Count 371 th/mm3 (150-450); Red Blood Count 3.85 mil/mm3 (4.50-5.90); Red Cell Distribution Width 13.7 % (11.6-17.2); White Blood Count 17.4 th/mm3 (4.0-11.0)
[2018-08-10 07:49] LABS: Alanine Aminotransferase 44 U/L (12-78); Albumin 2.4 g/dL (3.4-5.0); Alkaline Phosphatase 136 U/L (45-117); Anion Gap 9 meq/L (5-15); Aspartate Aminotransferase 30 U/L (15-37); Blood Urea Nitrogen 10 mg/dL (7-18); Calcium 7.8 mg/dL (8.5-10.1); Carbon Dioxide 24.7 meq/L (21.0-32.0); Chloride 109 meq/L (98-107); Glomerular Filtration Rate Greater Than 89 mL/min (>89); Glucose,Random 83 mg/dL (74-106); Potassium 3.8 meq/L (3.5-5.1); Sodium 143 meq/L (136-145); Total Protein 6.6 g/dL (6.4-8.2)
[2018-08-10 08:20] LABS: Platelet Estimate Normal (Normal); Platelet Morphology Normal (Normal)
[2018-08-10] MEDS: Senna/Docusate Sodium 8.6/50 MG Tablet PO SCH ×2 (11:11→21:35)
--- NOTE | 2018-08-10 12:19 | P.PN ---
Subjective Interval history: The margin of the bed. wrighting all answers to questions. Says he feels better. Abdominal pain is better controlled. No nausea vomiting no diarrhea overnight. No more chills and no fevers. Physical Exam Vital signs: Vital Signs 08/09/18 14:35 08/09/18 16:00 08/09/18 17:42 Temperature 102.5 F H 102.7 F H Pulse Rate 72 87 Respiratory Rate 16 18 Blood Pressure 108/61 131/69 Pulse Oximetry 99 98 08/09/18 20:00 08/10/18 00:00 08/10/18 04:00 Temperature 98.3 F 99.5 F 98.3 F Pulse Rate 94 H 72 80 Respiratory Rate 16 16 16 Blood Pressure 121/67 115/63 120/61 Pulse Oximetry 95 98 99 08/10/18 04:32 08/10/18 04:42 08/10/18 08:00 Temperature 98.3 F Pulse Rate 68 Respiratory Rate 20 20 17 Blood Pressure 113/80 Pulse Oximetry 99 08/10/18 12:00 Temperature 98.6 F Pulse Rate 81 Respiratory Rate 18 Blood Pressure 116/71 Pulse Oximetry 100 Intake & Output 08/09/18 08/10/18 08/10/18 18:59 06:59 18:59 Intake Total 2300 / 2300 659 / 659 Balance 2300 / 2300 659 / 659 Weight 71 kg 69.6 kg Intake: IV 2300 / 2300 659 / 659 Ofirmev Inj 1,000 mg In 100 ml 200 / 200 @ 400 mls/hr IV.SIG Q6H [facility] Rx# :[id number] Zosyn 3.375 GM Premix 50 ML @ 50 / 50 100 mls/hr IV.SIG ONCE ONE Rx#: [id number] Zosyn 4.5 GM Premix 4.5 gm In 200 / 200 100 ml @ 200 mls/hr IV.SIG Q6H [facility] Rx#:[id number] NS Inj 1,000 ML @ Wide Open IV. 1999 SIG BOLUS ONE Rx#:[id number] Vancomycin Inj 1,000 MG In NS 250 / 250 Inj 250 ML @ 250 mls/hr IV.SIG ONCE ONE Rx#:[id number] Vancomycin Inj 900 MG In NS Inj 259 / 259 250 ML @ 250 mls/hr IV.SIG Q12H [facility] Rx#:[id number] Other: # Voids 3 Date of Last Bowel Movement 08/09/18 Narrative: GENERAL: 58 yo male, appears in nad. Not talking but is communicating by shaking his head yes and no and also by writing. CARDIOVASCULAR: Regular rate and rhythm. RESPIRATORY: No accessory muscle use. Clear to auscultation. Breath sounds equal bilaterally. GASTROINTESTINAL: Abdomen soft, tenderness with palpation on right upper quadrant, nondistended. MUSCULOSKELETAL: Extremities without clubbing, cyanosis, or edema. No obvious deformities. NEUROLOGICAL: Awake and alert. No obvious cranial nerve deficits. Motor grossly within normal limits. Five out of 5 muscle strength in the arms and legs. Normal speech. PSYCHIATRIC: Not talking but is communicating by shaking his head yes and no and also by writing. Results - Labs CBC & Chem 7: 08/10/18 04:54 08/10/18 04:54 Laboratory Results - last 24 hr 08/09/18 08/09/18 08/10/18 12:13 15:56 04:54 WBC 17.4 H RBC 3.85 L Hgb 11.3 L Hct 34.2 L MCV 88.7 MCH 29.4 MCHC 33.2 RDW 13.7 Plt Count 371 MPV 8.2 Prelim Diff (Auto) Slide review pending Neut % (Auto) 83.1 H Lymph % (Auto) 8.5 L [place] % (Auto) 6.8 Eos % (Auto) 0.9 Baso % (Auto) 0.7 Neut # (Auto) 14.5 H Lymph # (Auto) 1.5 [place] # (Auto) 1.2 H Eos # (Auto) 0.2 Baso # (Auto) 0.1 WBC Differential . Diff Scan Auto diff confirmed Differential Comment . Platelet Estimate Normal Platelet Morphology Normal Sodium Potassium Chloride Carbon Dioxide Anion Gap BUN Creatinine Estimated GFR Random Glucose Calcium Total Bilirubin AST ALT Alkaline Phosphatase Total Protein Albumin Urine Color Straw Urine Clarity Clear Urine pH 6.0 Ur Specific [place] 1.004 Urine Protein Negative Urine Glucose (UA) Negative Urine Ketones Negative Urine Occult Blood Moderate H Urine Nitrate Negative Urine Bilirubin Negative Urine Urobilinogen Less than 2 Ur Leukocyte Esterase Negative Urine RBC 3 Urine WBC 1 Urine Bacteria Rare H Micro UA Comment Culture not ind Ur Microscopic Review Not Reportable Urine Culture Comments Culture not ind Stl C.difficile Tox PCR Negative St C. diff Tox Epid 027 Negative 08/10/18 04:54 WBC RBC Hgb Hct MCV MCH MCHC RDW Plt Count MPV Prelim Diff (Auto) Neut % (Auto) Lymph % (Auto) [place] % (Auto) Eos % (Auto) Baso % (Auto) Neut # (Auto) Lymph # (Auto) [place] # (Auto) Eos # (Auto) Baso # (Auto) WBC Differential Diff Scan Differential Comment Platelet Estimate Platelet Morphology Sodium 143 Potassium 3.8 Chloride 109 H D Carbon Dioxide 24.7 Anion Gap 9 BUN 10 Creatinine 0.86 Estimated GFR Greater than 89 Random Glucose 83 Calcium 7.8 L D Total Bilirubin 1.8 H AST 30 ALT 44 Alkaline Phosphatase 136 H Total Protein 6.6 Albumin 2.4 L Urine Color Urine Clarity Urine pH Ur Specific [place] Urine Protein Urine Glucose (UA) Urine Ketones Urine Occult Blood Urine Nitrate Urine Bilirubin Urine Urobilinogen Ur Leukocyte Esterase Urine RBC Urine WBC Urine Bacteria Micro UA Comment Ur Microscopic Review Urine Culture Comments Stl C.difficile Tox PCR St C. diff Tox Epid 027 Microbiology 08/09/18 11:23 Blood - Peripheral Aerobic Blood Culture - Preliminary No growth in 1 day 08/09/18 11:23 Blood - Peripheral Anaerobic Blood Culture - Preliminary No growth in 1 day 08/09/18 11:28 Blood - Peripheral Aerobic Blood Culture - Preliminary No growth in 1 day 08/09/18 11:28 Blood - Peripheral Anaerobic Blood Culture - Preliminary No growth in 1 day 08/09/18 15:56 Stool Enteric Pathogens (PCR) - Final No enteric pathogens detected by PCR (No Salmonella sp., Shigella sp., Campylobacter sp., Yersinia enterocolitica, Vibrio sp., Norovirus, or EHEC (Shiga Toxin 1 or Shiga Toxin 2) detected. 08/09/18 12:13 Nasal Wash Influenza Types A,B Antigen - Final Negative for FLU A and B antigen Infection due to influenza A or B cannot be ruled out since the antigen present in the sample may be below the detection limit of the test. - Imaging Impressions Chest X-Ray 08/09/18 11:07 CONCLUSION: 1. Minimal airspace disease at the left lung base, presumably atelectasis. Abdomen/Pelvis CT 08/09/18 11:08 CONCLUSION: 1. Complex 4.5 x 3.8 cm mass containing septations in the inferior segment 6 of the liver with adjacent. Pericapsular inflammatory stranding and suspected segmental thrombosed probable hepatic vein branch. Underlying liver parenchyma appears unremarkable without evidence for volume loss. Differential considerations include hepatic abscess versus hepatic malignancy although abscess is favored given the apparently normal appearance of the liver by CT. Correlation with clinical history and laboratory evaluation is recommended. Assessment and Plan - Plan 58-year-old male with With sepsis meeting criteria patient with fevers, leukocytosis, tachycardia, possible liver abscess. Liver abscess. Patient presented with right upper quadrant abdominal pain, fever chills, nausea and diarrhea. LA normal at admission Chest X-Ray reviewed Minimal airspace disease at the left lung base, likely atelectasis. Abdomen/Pelvis CT reviewed and findings discussed with ED physician and also with the patient 1. Complex 4.5 x 3.8 cm mass containing septations in the inferior segment 6 of the liver with adjacent. Pericapsular inflammatory stranding and suspected segmental thrombosed probable hepatic vein branch. Underlying liver parenchyma appears unremarkable without evidence for volume loss. Differential considerations include hepatic abscess versus hepatic malignancy although abscess is favored given the apparently normal appearance of the liver by CT. Blood cultures obtained in the ED follow up results Continue with the patient in IV abx vancomycin and Zosyn ID consulted for eval. Consult IR for poss CT guided aspiration Pain meds per pain scale Tylenol for fevers H/o schizophrenia. Patient chooses not to talk but communicated by writing and nodding yes/ no . Says he doesn't know the name of the meds he is taking, but he is compliant with meds. Consult psychiatry for evaluation and recommendations. Spoke with Dr Villegas who evaluate patient, restarted his home meds. Patient doesn't meet inpatient criteria at this time per psych. Will continue to monitor and will notify psychiatry service if any changes. Appreciate consult and recommendations from psychiatry service. DVT ppx SCD/TEDS/ ambulation
--- NOTE | 2018-08-10 12:49 | P.PNID ---
Subjective Remarks: Patient is a 58-year-old male, presented to the hospital complaining of one- week history of right-sided abdominal pain, fever and chills, and diarrhea. He denies any nausea or vomiting. He denies any prior history of abdominal pain. Denies any fatty food intolerance. He denies any urinary complaint. He has not had any skin infection. Denies any IV drug use. Denies any respiratory complaint. He has never had any gallbladder problem. Denies any prior history of alternating constipation or diarrhea. Since admission patient has been febrile up to 102. He complains of right-sided abdominal pain. CT of the abdomen and pelvis is showing a complex fluid collection in the liver. No gallbladder abnormality noted. No colon abnormality seen. His WBC is greater than 20,000. His LFTs are okay. Infectious disease consultation has been requested to evaluate the patient. Notes reviewed Temps better Some improvement in abdominal pain No N/V BC are negative WBC lower Antibiotics: Zosyn vancomycin Lines: PIV Past Medical History: GERD (gastroesophageal reflux disease) Hematuria Schizophrenia Allergies/Adverse Reactions: Allergies No Known Allergies Allergy (Unverified 08/09/18 10:08) Objective Vital Signs 08/09/18 14:35 08/09/18 16:00 08/09/18 17:42 Temperature 102.5 F H 102.7 F H Pulse Rate 72 87 Respiratory Rate 16 18 Blood Pressure 108/61 131/69 Pulse Oximetry 99 98 08/09/18 20:00 08/10/18 00:00 08/10/18 04:00 Temperature 98.3 F 99.5 F 98.3 F Pulse Rate 94 H 72 80 Respiratory Rate 16 16 16 Blood Pressure 121/67 115/63 120/61 Pulse Oximetry 95 98 99 08/10/18 04:32 08/10/18 04:42 08/10/18 08:00 Temperature 98.3 F Pulse Rate 68 Respiratory Rate 20 20 17 Blood Pressure 113/80 Pulse Oximetry 99 08/10/18 12:00 Temperature 98.6 F Pulse Rate 81 Respiratory Rate 18 Blood Pressure 116/71 Pulse Oximetry 100 Intake & Output 08/09/18 08/10/18 08/10/18 18:59 06:59 18:59 Intake Total 2300 / 2300 659 / 659 100 / 100 Balance 2300 / 2300 659 / 659 100 / 100 Weight 71 kg 69.6 kg Intake: IV 2300 / 2300 659 / 659 100 / 100 Ofirmev Inj 1,000 mg In 100 ml 200 / 200 @ 400 mls/hr IV.SIG Q6H [facility] Rx# :[id number] Zosyn 3.375 GM Premix 50 ML @ 50 / 50 100 mls/hr IV.SIG ONCE ONE Rx#: [id number] Zosyn 4.5 GM Premix 4.5 gm In 200 / 200 100 / 100 100 ml @ 200 mls/hr IV.SIG Q6H [facility] Rx#:[id number] NS Inj 1,000 ML @ Wide Open IV. 1999 / 1999 SIG BOLUS ONE Rx#:[id number] Vancomycin Inj 1,000 MG In NS 250 / 250 Inj 250 ML @ 250 mls/hr IV.SIG ONCE ONE Rx#:[id number] Vancomycin Inj 900 MG In NS Inj 259 / 259 250 ML @ 250 mls/hr IV.SIG Q12H [facility] Rx#:[id number] Other: # Voids 3 Date of Last Bowel Movement 08/09/18 08/09/18 11:23 Blood - Peripheral Aerobic Blood Culture - Preliminary No growth in 1 day 08/09/18 11:23 Blood - Peripheral Anaerobic Blood Culture - Preliminary No growth in 1 day 08/09/18 11:28 Blood - Peripheral Aerobic Blood Culture - Preliminary No growth in 1 day 08/09/18 11:28 Blood - Peripheral Anaerobic Blood Culture - Preliminary No growth in 1 day 08/09/18 15:56 Stool Enteric Pathogens (PCR) - Final No enteric pathogens detected by PCR (No Salmonella sp., Shigella sp., Campylobacter sp., Yersinia enterocolitica, Vibrio sp., Norovirus, or EHEC (Shiga Toxin 1 or Shiga Toxin 2) detected. 08/09/18 12:13 Nasal Wash Influenza Types A,B Antigen - Final Negative for FLU A and B antigen Infection due to influenza A or B cannot be ruled out since the antigen present in the sample may be below the detection limit of the test. Lab - Hematology Results 08/09/18 08/10/18 10:39 04:54 WBC 21.5 H 17.4 H RBC 4.09 L 3.85 L Hgb 11.9 L 11.3 L Hct 36.0 L 34.2 L MCV 88.0 88.7 MCH 29.0 29.4 MCHC 32.9 33.2 RDW 13.6 13.7 Plt Count 403 371 MPV 8.2 8.2 Prelim Diff (Auto) Slide review pending Slide review pending Neut % (Auto) 87.5 H 83.1 H Lymph % (Auto) 7.0 L 8.5 L [place] % (Auto) 4.7 6.8 Eos % (Auto) 0.3 0.9 Baso % (Auto) 0.5 0.7 Neut # (Auto) 18.8 H 14.5 H Lymph # (Auto) 1.5 1.5 [place] # (Auto) 1.0 H 1.2 H Eos # (Auto) 0.1 0.2 Baso # (Auto) 0.1 0.1 WBC Differential Manual diff final . Diff Scan Auto diff confirmed Seg Neuts % (Manual) 80 H Band Neuts % (Manual) 3 Lymphocytes % (Manual) 11 Monocytes % (Manual) 4 Myelocytes % (Man) 1 H Promyelocytes % (Man) 1 H Abs Neuts (Manual) 18.3 H Differential Comment . . Platelet Estimate Normal Normal Platelet Morphology Normal Normal Lab - Chemistry Results 08/09/18 08/09/18 08/09/18 10:39 11:28 11:28 Sodium 135 L Potassium 3.8 Chloride 101 Carbon Dioxide 24.9 Anion Gap 9 BUN 13 Creatinine 0.96 Estimated GFR 81 L Random Glucose 118 H Lactic Acid 0.8 Calcium 8.7 Magnesium 1.9 Total Bilirubin 0.8 Direct Bilirubin 0.3 H Indirect Bilirubin 0.5 AST 30 ALT 44 Alkaline Phosphatase 148 H Total Protein 6.8 Albumin 2.6 L Lipase 183 08/10/18 04:54 Sodium 143 Potassium 3.8 Chloride 109 H D Carbon Dioxide 24.7 Anion Gap 9 BUN 10 Creatinine 0.86 Estimated GFR Greater than 89 Random Glucose 83 Lactic Acid Calcium 7.8 L D Magnesium Total Bilirubin 1.8 H Direct Bilirubin Indirect Bilirubin AST 30 ALT 44 Alkaline Phosphatase 136 H Total Protein 6.6 Albumin 2.4 L Lipase Imaging: ITS Impressions Chest X-Ray 08/09/18 11:07 CONCLUSION: 1. Minimal airspace disease at the left lung base, presumably atelectasis. Abdomen/Pelvis CT 08/09/18 11:08 CONCLUSION: 1. Complex 4.5 x 3.8 cm mass containing septations in the inferior segment 6 of the liver with adjacent. Pericapsular inflammatory stranding and suspected segmental thrombosed probable hepatic vein branch. Underlying liver parenchyma appears unremarkable without evidence for volume loss. Differential considerations include hepatic abscess versus hepatic malignancy although abscess is favored given the apparently normal appearance of the liver by CT. Correlation with clinical history and laboratory evaluation is recommended. Physical Exam: GENERAL: awake and alert, not in respiratory distress. He does not look toxic appearing. SKIN: Warm and dry. No generalized rash, no ecchymoses and no evidence of embolic lesions. HEAD: Atraumatic. Normocephalic. No temporal wasting, or tenderness. EYES: [place] conjunctiva. No petechia or hemorrhage. Pupils equal, round and reactive to light. Extraocular movements full and intact. No scleral icterus. No injection or drainage. EARS, NOSE AND THROAT: Nose without bleeding or purulent nasal discharge. No sinus tenderness. Mucous membranes pink and moist. No oral lesions noted. No exudate. No oral thrush. NECK: Trachea midline. Supple and not tender, no meningeal signs CARDIOVASCULAR: Regular rate and rhythm. No murmurs, rubs or gallops heard RESPIRATORY: Clear to auscultation. Breath sounds equal bilaterally. No rales , wheezing or rhonchi ABDOMEN: Soft, nondistended, has mild right-sided tenderness. No guarding or rebound. Bowel sounds present and normoactive. No organomegaly. EXTREMITIES: No clubbing, cyanosis, or edema.No joint effusion, has good ROM. No calf tenderness. Well perfused and warm. NEUROLOGICAL: Awake and alert. Cranial nerves grossly intact. Motor grossly within normal limits. Patient does not speak. He writes is how he communicates. PSYCHIATRIC: Normal affect, calm and cooperative. LINE: No evidence of infection Assessment and Plan - Plan Impression Sepsis on admission due to liver process Liver abscess, likely pyogenic abscess - no obvious GB pathology or colon pathology - ?IE Known schizophrenia ?Endocarditis with seeding Recommendation Agree with current empiric antibiotics Continue Zosyn Continue Vanco Follow cultures Await echo Will consult IR to look at percutaneous drainage of liver fluid collection Follow temps Monitor progress I will determine course of antibiotic once workup is completed
[2018-08-10] MEDS ORDERED: fentaNYL Citrate Inj 250 MCG/5 ML Ampul ONE (14:46)
--- NOTE | 2018-08-10 16:05 | P.CONPSY ---
Provisional Diagnosis Admission Date: August 09, 2018 13:46 [place] I.: Schizophrenia History of Present Illness Service: Medicine Primary Care Provider: UNKNOWN History of Present Illness: The patient is a 58-year-old man, domiciled in [facility], single, unemployed, with a psychiatric history of schizophrenia, substance abuse, previous psychiatric hospitalizations, he denies previous suicidal attempts, history of incarcerations, he has established [facility] services, he is on Geodon 60 mg at bedtime, Wellbutrin 200 mg twice daily, no significant medical history, who presents to the emergency department for evaluation abdominal pain, fever, chills, diarrhea for 1 week. Patient does not speak. He writes and shakes his head to questions with yes/no. He does state that he understands me. When asked if he is capable of speaking but chooses not to, he shakes his head yes. The patient does have history of schizophrenia according to the chart. Patient says he does not know the name of the medications, but he reports compliance of taking his medications for schizophrenia. He will not talk at all. The patient denies any chest pain, cough, shortness of breath. He denies nausea and vomiting. He reports right-sided - RUQ abdominal pain. He has diarrhea 3 times overnight and one time in the morning no blood in it. Associated fevers and chills. He denies having any other chronic medical problems. He denies allergies. He denies alcohol abuse. He denies any drug use. Moderate severity. He denies any previous abdominal surgeries. Chest X-Ray reviewed Minimal airspace disease at the left lung base, likely atelectasis. Abdomen/Pelvis CT reviewed and findings discussed with ED physician and also with the patient 1. Complex 4.5 x 3.8 cm mass containing septations in the inferior segment 6 of the liver with adjacent. Pericapsular inflammatory stranding and suspected segmental thrombosed probable hepatic vein branch. Underlying liver parenchyma appears unremarkable without evidence for volume loss. Differential considerations include hepatic abscess versus hepatic malignancy although abscess is favored given the apparently normal appearance of the liver by CT. The patient was consulted to psychiatry given his history of schizophrenia and his reluctance to talk. On my psychiatric evaluation the patient initially poorly cooperative, resistant and oppositional, stating that he does not want to speak with a psychiatrist. The patient is mute, but as per nurse report he is selectively mute, because at times he has expressed verbally is wishes. However, today he decides not to talk. I explained to the patient that if he does not talk, I am going to get the impression that he is paranoid, is going to be [place] acted and admitted. He is started to communicate with me by writing , but also just answered some of my questions. He says that he is here for a medical condition. He wants the treatment, he wants to get better. He reports that he has schizophrenia. He was [facility]. He refuses to tell me what is the reason he was incarcerated at the time that he was incarcerated. He says that he has been taking Geodon 60 mg and Wellbutrin 200 mg daily for many years and he has been stable. At this moment he denies suicidal and homicidal ideation, he denies visual and auditory hallucinations. However the patient is quite guarded and seems to be internally preoccupied. There is no report of agitation or aggressive behavior, and the patient apparently has been cooperative with medical team. He has been taking his medications. I got collateral information from [facility], with BEHAVIORAL HEALTH CARE MANAGER Sherry Barraza, who confirms that the patient is an established patient in [facility]. His last outpatient visit was in April 12, 2018. He is compliant with his follow-ups. She confirms that he is on Geodon 60 mg at bedtime Wellbutrin 200 mg twice daily. He also tells me that the patient talks when he wants to, but he usually becomes selectively mute when he is paranoid. The patient at baseline seems to be quite delusional , for example, and his last visit he stated that he could not speak [place] because god was telling him to speak just and Welsh. She tells me that the patient at baseline "is odd", but usually compliant with medications, not problematic. He has a distant history of polysubstance abuse. PMF - History History Provided By: Patient - Medical History Medical History: Medical History (Last Reviewed 08/09/18 @ 18:27 by Nicholas Desir) GERD (gastroesophageal reflux disease) Hematuria Schizophrenia - Family History Family History: Family History (Last Reviewed 08/09/18 @ 18:10 by Keyona Lechuga MD) Other Family history normal - Tobacco History Tobacco Use In Past 30 Days: No Smoking Status: Former smoker Tobacco Type: Cigarettes - Alcohol History How Often Do You Have a Drink Containing Alcohol: Monthly or less - Travel History Recent Travel in the [place] Within the Last 8 Weeks: No Recent Travel Out of the Country Within the Last 8 Weeks: No - Immunization History Tetanus Immunization: Unsure Medications and Allergies Active Medications: Active Medications Acetaminophen (Tylenol) 650 mg PO Q4H PRN PRN Reason: Temp > 100.4 Last Admin: 08/09/18 16:41 Dose: 650 mg Al Hydroxide/Mg Hydroxide (Milk Of Magnesia Liq) 30 ml PO Q12H PRN PRN Reason: Mild Constipation Bisacodyl (Dulcolax Supp) 10 mg RECTAL DAILY PRN PRN Reason: SEVERE CONSITIPATION Sodium Chloride (Ns Inj) 1,000 mls @ 100 mls/hr IV.CONT .Q10H [facility] Last Admin: 08/10/18 11:12 Dose: 100 mls/hr Piperacillin/Tazobactam/Dextrose (Zosyn 4.5 Gm Premix) 4.5 gm in 100 mls @ 200 mls/hr IV.SIG Q6H [facility] Last Infusion: 08/10/18 12:19 Dose: Infused Vancomycin HCl 1,000 mg/ (Sodium Chloride) 250 mls @ 250 mls/hr IV.SIG Q12H MAL Ibuprofen (Motrin) 400 mg PO Q6H PRN PRN Reason: FEVER > 101 F Lactulose (Lactulose Liq) 30 ml PO DAILY PRN PRN Reason: SEVERE CONSITIPATION Miscellaneous Information ([facility] Ordered Lab Info) 1 each OTHER ONCE ONE Stop: 08/11/18 02:46 Ondansetron HCl (Zofran Inj) 4 mg IV.PUSH Q6H PRN PRN Reason: NAUSEA OR VOMITING Pharmacy Profile Note (Vancomycin Consult Pharmacy) 1 each OTHER UNSCH PRN PRN Reason: Pharmacy to dose Senna/Docusate Sodium (Valencia-Colace) 1 tab PO BID [facility] Last Admin: 08/10/18 11:11 Dose: Not Given Sennosides (Senokot) 17.2 mg PO Q12H PRN PRN Reason: Moderate Constipation Sodium Chloride (Ns Flush) 2 ml IV.FLUSH PRN PRN PRN Reason: FLUSH AFTER USING IV ACCESS Allergies Allergy/AdvReac Type Severity Reaction Status Date / Time No Known Allergies Allergy Unverified 08/09/18 10:08 Home Medications Medication Instructions Recorded Confirmed Type bupropion HCl [Wellbutrin SR] 200 mg PO BID 08/09/18 08/09/18 History ziprasidone HCl [Geodon] 60 mg PO QPM 08/09/18 08/09/18 History Exam Vital signs: Vital Signs 08/09/18 16:00 08/09/18 17:42 08/09/18 20:00 Temperature 102.5 F H 102.7 F H 98.3 F Pulse Rate 87 94 H Respiratory Rate 18 16 Blood Pressure 131/69 121/67 Pulse Oximetry 98 95 08/10/18 00:00 08/10/18 04:00 08/10/18 04:32 Temperature 99.5 F 98.3 F Pulse Rate 72 80 Respiratory Rate 16 16 20 Blood Pressure 115/63 120/61 Pulse Oximetry 98 99 08/10/18 04:42 08/10/18 08:00 08/10/18 12:00 Temperature 98.3 F 98.6 F Pulse Rate 68 81 Respiratory Rate 20 17 18 Blood Pressure 113/80 116/71 Pulse Oximetry 99 100 Intake & Output 08/09/18 08/10/18 08/10/18 18:59 06:59 18:59 Intake Total 2300 / 2300 659 / 659 100 / 100 Balance 2300 / 2300 659 / 659 100 / 100 Weight 71 kg 69.6 kg Intake: IV 2300 / 2300 659 / 659 100 / 100 Ofirmev Inj 1,000 mg In 100 ml 200 / 200 @ 400 mls/hr IV.SIG Q6H MAL Rx# :[id number] Zosyn 3.375 GM Premix 50 ML @ 50 / 50 100 mls/hr IV.SIG ONCE ONE Rx#: [id number] Zosyn 4.5 GM Premix 4.5 gm In 200 / 200 100 / 100 100 ml @ 200 mls/hr IV.SIG Q6H MAL Rx#:[id number] NS Inj 1,000 ML @ Wide Open IV. 1999 SIG BOLUS ONE Rx#:[id number] Vancomycin Inj 1,000 MG In NS 250 / 250 Inj 250 ML @ 250 mls/hr IV.SIG ONCE ONE Rx#:[id number] Vancomycin Inj 900 MG In NS Inj 259 / 259 250 ML @ 250 mls/hr IV.SIG Q12H [facility] Rx#:[id number] Other: # Voids 3 Date of Last Bowel Movement 08/09/18 Mental Status Examination Appearance: Appropriate Consciousness: Alert Orientation: x4 Motor Activity: Normal gait Speech: Other (Selectively mute) Language: Other (Selectively mute) Fund of Knowledge: Adequate Memory: Unremarkable Mood: Oppositional Affect: Irritable Thought Process & Associations: Logical Thought Content: Appropriate Hallucination Type: None Delusion Type: Paranoid Suicidal Ideation: No Suicidal Plan: No Suicidal Intention: No Homicidal Ideation: No Homicidal Plan: No Homicidal Intention: No Insight: Poor Judgment: Poor (MSE is limited due to the mutism) Assessment and Plan - Assessment (1) Schizophrenia Code(s): F20.9 - Schizophrenia, unspecified Status: Acute - Plan Plan: Estimated LOS: [] days On psychiatric evaluation today the patient is poorly cooperative, oppositional and resistant. The patient is selectively mute, which most probably is related with some level of paranoia. However, the patient has being compliant with his medications, he has been communicating through writing, he has been following the medical recommendations, and there is no report of agitation or aggressive behavior. There is a patient with a psychiatric history of schizophrenia, substance dependence, previous psychiatric hospitalizations, and he is an established patient in [facility]. 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 I will restart the Geodon 60 mg at bedtime, Wellbutrin 200 mg twice daily. At this moment I did not perceive that the patient is a candidate for psychiatric admission. Continue current medical treatment. I will follow-up. Justification for Continued Inpatient Stay: Patient does not meet criteria for involuntary psychiatric admission at this moment.
--- NOTE | 2018-08-10 16:16 | P.RAD ---
Post CT Procedure Prog Note - Procedure Information Procedure Date: 08/10/18 Supervising Radiologist: Azeem Ugarte MD Anesthesia: Conscious Sedation - Plan of Activity Patient to Unit: [facility]OPU Patient condition: Good See PACS Report for procedural detail/treatment.
[2018-08-10] MEDS: Vancomycin Inj 1,000 MG in Sodium Chlor 0.9% Inj 250 ML IV.SIG SCH (18:56)
[2018-08-10] MEDS: buPROPion 100 MG ER 12 HR Tablet PO SCH (21:35)
[2018-08-10] MEDS: Acetaminophen 325 MG Tablet PO PRN (23:56)
[2018-08-11] MEDS: Sod Chloride 0.9% Inj 1,000 ML IV.CONT SCH ×3 (01:11→22:00)
[2018-08-11] MEDS ORDERED: Pharmacy Ordered Lab Info OTHER ONE (02:45)
[2018-08-11] MEDS: Piperacil/Tazo 4.5 GM Premix 4.5 GM/100 ML BAG IV.SIG SCH ×4 (02:48→20:22)
[2018-08-11] MEDS: Vancomycin Inj 1,000 MG in Sodium Chlor 0.9% Inj 250 ML IV.SIG SCH ×2 (02:48→16:34)
--- NOTE | 2018-08-11 06:56 | CT ---
EXAM DATE: 08/10/2018 3:20 PM EDT AGE/SEX: 58 years / Male INDICATIONS: 58-year-old male with suspected liver abscess. CLINICAL DATA: This is the patient's initial encounter. Patient reports that signs and symptoms have been present for 2 days and indicates a pain score of 2/10. MEDICAL/SURGICAL HISTORY: None. None. COMPARISON: No prior exams available for comparison. BIOPSY SITE: liver MEDICATION(S): 4 midazolam (Versed) IV 200 fentanyl (Sublimaze) IV DEVICE(S): 10 Fr [place] FLUID: Total volume of 15cc of cloudy, yellow fluid was removed. Fluid was sent to lab for ordered studies.. . . PROCEDURE : CT guided drainage of the liver. The risks, benefits and alternatives to the procedure were explained and verbal and written consent w as obtained. Using automated exposure control and adjustment of the mA and/or kV according to patient size, radiation dose was kept as low as reasonably achievable to obtain optimal diagnostic quality i mages. The site was prepped in sterile fashion. Full sterile technique was used, including cap, ma sk, sterile gloves and gown and a large sterile sheet. Hand hygiene and 2% chlorhexidine and/or beta dine/alcohol prep was utilized per protocol for cutaneous antisepsis. The skin and subcutaneous tiss ues were infiltrated with local anesthetic solution. DICOM format image data is available electronic ally for review and comparison. Using CT guidance the prescribed site was localized. Drainage was performed using the prescribed cat heter. The patient tolerated the procedure well and there were no complications. The patient tolerated the procedure well and there were no complications. The patient was sent to post anesthesia recovery in s table condition. FINDINGS: Removed approximately 20 cc of purulent fluid. Samples submitted for Gram stain and C&S. CONCLUSION: 1. Uncomplicated CT guided drainage. Electronically signed by: Azeem Ugarte MD 08/11/2018 6:55 AM EDT
[2018-08-11] MEDS: buPROPion 100 MG ER 12 HR Tablet PO SCH ×2 (08:46→20:20)
--- NOTE | 2018-08-11 13:11 | P.PN ---
Subjective Interval history: Is ambulating in the room does not appear in acute distress. Says he has pain at the drainage site right upper quadrant abdominal pain nonradiating. Chills but no fevers. No nausea vomiting able to eat. 3 times diarrhea nonbloody. Communicates by writing Physical Exam Vital signs: Vital Signs 08/10/18 16:25 08/10/18 16:45 08/10/18 17:00 Temperature 98.8 F Pulse Rate 81 75 71 Respiratory Rate 18 18 18 Blood Pressure 107/65 111/64 130/76 Pulse Oximetry 94 L 94 L 94 L 08/10/18 17:30 08/10/18 20:00 08/11/18 00:00 Temperature 100.7 F H 101.1 F H Pulse Rate 71 90 84 Respiratory Rate 18 Blood Pressure 122/73 107/58 L 111/59 L Pulse Oximetry 97 95 95 08/11/18 02:47 08/11/18 04:00 08/11/18 08:00 Temperature 99.1 F 97.7 F 97.7 F Pulse Rate 73 86 Respiratory Rate 18 16 Blood Pressure 100/64 108/62 Pulse Oximetry 92 L 95 08/11/18 12:00 Temperature 98.7 F Pulse Rate 87 Respiratory Rate 18 Blood Pressure 110/61 Pulse Oximetry 98 Intake & Output 08/10/18 08/11/18 08/11/18 18:59 06:59 18:59 Intake Total 680 / 680 1450 / 1450 Output Total Balance 680 / 680 1440 / 1440 Weight 71.6 kg Intake: IV 200 / 200 1450 / 1450 NS Inj 1,000 ML @ 100 mls/hr IV 1000 / 1000 .CONT .Q10H MAL Rx#:[id number] Zosyn 4.5 GM Premix 4.5 gm In 200 / 200 200 / 200 100 ml @ 200 mls/hr IV.SIG Q6H MAL Rx#:[id number] Vancomycin Inj 1,000 MG In NS 250 / 250 Inj 250 ML @ 250 mls/hr IV.SIG Q12H MAL Rx#:[id number] Oral 480 / 480 Output: Wound Drainage Right Abdomen 10 Other: # Voids 4 3 Date of Last Bowel Movement 08/10/18 08/10/18 08/11/18 # Bowel Movements 1 Narrative: GENERAL: 58 yo male, appears in nad. Not talking but is communicating by shaking his head yes and no and also by writing. CARDIOVASCULAR: Regular rate and rhythm. RESPIRATORY: No accessory muscle use. Clear to auscultation. Breath sounds equal bilaterally. GASTROINTESTINAL: Abdomen soft, tenderness with palpation on right upper quadrant, nondistended. Drain right upper quadrant in place with significant drainage. MUSCULOSKELETAL: Extremities without clubbing, cyanosis, or edema. No obvious deformities. NEUROLOGICAL: Awake and alert. No obvious cranial nerve deficits. Motor grossly within normal limits. Five out of 5 muscle strength in the arms and legs. Normal speech. PSYCHIATRIC: Not talking but is communicating by shaking his head yes and no and also by writing. Results - Labs CBC & Chem 7: 08/10/18 04:54 08/10/18 04:54 Microbiology 08/10/18 16:11 Fluid - Other Gram Stain - Final 08/10/18 16:11 Fluid - Other Body Fluid Culture - Preliminary No growth in 24 hours 08/09/18 11:23 Blood - Peripheral Aerobic Blood Culture - Preliminary No growth in 2 days 08/09/18 11:23 Blood - Peripheral Anaerobic Blood Culture - Preliminary No growth in 2 days 08/09/18 11:28 Blood - Peripheral Aerobic Blood Culture - Preliminary No growth in 2 days 08/09/18 11:28 Blood - Peripheral Anaerobic Blood Culture - Preliminary No growth in 2 days 08/10/18 16:11 Abscess - Abdominal Fungal Smear - Final No fungal elements seen - Imaging Impressions Abscess Drainage CT 08/10/18 00:00 CONCLUSION: 1. Uncomplicated CT guided drainage. Assessment and Plan - Plan 58-year-old male with With sepsis meeting criteria patient with fevers, leukocytosis, tachycardia, possible liver abscess. Liver abscess. Patient presented with right upper quadrant abdominal pain, fever chills, nausea and diarrhea. LA normal at admission Chest X-Ray reviewed Minimal airspace disease at the left lung base, likely atelectasis. Abdomen/Pelvis CT reviewed and findings discussed with ED physician and also with the patient 1. Complex 4.5 x 3.8 cm mass containing septations in the inferior segment 6 of the liver with adjacent. Pericapsular inflammatory stranding and suspected segmental thrombosed probable hepatic vein branch. Underlying liver parenchyma appears unremarkable without evidence for volume loss. Differential considerations include hepatic abscess versus hepatic malignancy although abscess is favored given the apparently normal appearance of the liver by CT. Blood cultures obtained in the ED follow up results Continue with the patient in IV abx vancomycin and Zosyn ID consulted for eval. Consult IR s/status post p CT guided aspiration and drain placement of abscess on 08/10/18 Pain meds per pain scale Tylenol for fevers H/o schizophrenia. Patient chooses not to talk but communicated by writing and nodding yes/ no . Says he doesn't know the name of the meds he is taking, but he is compliant with meds. Consult psychiatry for evaluation and recommendations. Spoke with Dr Villegas who evaluate patient, restarted his home meds. Patient doesn't meet inpatient criteria at this time per psych. Will continue to monitor and will notify psychiatry service if any changes. Appreciate consult and recommendations from psychiatry service. DVT ppx SCD/TEDS/ ambulation Discussed with the patient, nurse
[2018-08-11] MEDS: Senna/Docusate Sodium 8.6/50 MG Tablet PO SCH ×2 (13:23→20:21)
--- NOTE | 2018-08-11 17:03 | P.PNID ---
Subjective Remarks: Patient is a 58-year-old male, presented to the hospital complaining of one- week history of right-sided abdominal pain, fever and chills, and diarrhea. He denies any nausea or vomiting. He denies any prior history of abdominal pain. Denies any fatty food intolerance. He denies any urinary complaint. He has not had any skin infection. Denies any IV drug use. Denies any respiratory complaint. He has never had any gallbladder problem. Denies any prior history of alternating constipation or diarrhea. Since admission patient has been febrile up to 102. He complains of right-sided abdominal pain. CT of the abdomen and pelvis is showing a complex fluid collection in the liver. No gallbladder abnormality noted. No colon abnormality seen. His WBC is greater than 20,000. His LFTs are okay. Infectious disease consultation has been requested to evaluate the patient. Notes reviewed Still with fevers Did not want to answer my questions - wrote down that he has a doctor and wants that doctor to see him; he does not want to see me anymore even after I told him that his doctor has asked me to see him Culture from fluid negative so far BC negative He did not want to be examined Antibiotics: Zosyn vancomycin Lines: PIV Past Medical History: GERD (gastroesophageal reflux disease) Hematuria Schizophrenia Allergies/Adverse Reactions: Allergies No Known Allergies Allergy (Unverified 08/09/18 10:08) Objective Vital Signs 08/10/18 17:00 08/10/18 17:30 08/10/18 20:00 Temperature 100.7 F H Pulse Rate 71 71 90 Respiratory Rate 18 18 18 Blood Pressure 130/76 122/73 107/58 L Pulse Oximetry 94 L 97 95 08/11/18 00:00 08/11/18 02:47 08/11/18 04:00 Temperature 101.1 F H 99.1 F 97.7 F Pulse Rate 84 73 Respiratory Rate 18 18 Blood Pressure 111/59 L 100/64 Pulse Oximetry 95 92 L 08/11/18 08:00 08/11/18 12:00 Temperature 97.7 F 98.7 F Pulse Rate 86 87 Respiratory Rate 16 18 Blood Pressure 108/62 110/61 Pulse Oximetry 95 98 Intake & Output 08/10/18 08/11/18 08/11/18 18:59 06:59 18:59 Intake Total 680 / 680 1450 / 1450 1100 / 1100 Output Total 10 / 10 Balance 680 / 680 1440 / 1440 1100 / 1100 Weight 71.6 kg Intake: IV 200 / 200 1450 / 1450 1100 / 1100 NS Inj 1,000 ML @ 100 mls/hr IV 1000 / 1000 1000 / 1000 .CONT .Q10H MAL Rx#:[id number] Zosyn 4.5 GM Premix 4.5 gm In 200 / 200 200 / 200 100 / 100 100 ml @ 200 mls/hr IV.SIG Q6H MAL Rx#:[id number] Vancomycin Inj 1,000 MG In NS 250 / 250 Inj 250 ML @ 250 mls/hr IV.SIG Q12H MAL Rx#:[id number] Oral 480 / 480 Output: Wound Drainage Right Abdomen Other: # Voids 4 3 Date of Last Bowel Movement 08/10/18 08/10/18 08/11/18 # Bowel Movements 1 08/10/18 16:11 Abscess - Abdominal Acid Fast Bacilli Smear - Final No acid fast bacilli seen 08/10/18 16:11 Abscess - Abdominal Mycobacterial Culture - Pending 08/10/18 16:11 Fluid - Other Gram Stain - Final 08/10/18 16:11 Fluid - Other Body Fluid Culture - Preliminary No growth in 24 hours 08/09/18 11:23 Blood - Peripheral Aerobic Blood Culture - Preliminary No growth in 2 days 08/09/18 11:23 Blood - Peripheral Anaerobic Blood Culture - Preliminary No growth in 2 days 08/09/18 11:28 Blood - Peripheral Aerobic Blood Culture - Preliminary No growth in 2 days 08/09/18 11:28 Blood - Peripheral Anaerobic Blood Culture - Preliminary No growth in 2 days 08/10/18 16:11 Abscess - Abdominal Fungal Smear - Final No fungal elements seen 08/10/18 16:11 Abscess - Abdominal Fungal Culture - Pending 08/09/18 15:56 Stool Enteric Pathogens (PCR) - Final No enteric pathogens detected by PCR (No Salmonella sp., Shigella sp., Campylobacter sp., Yersinia enterocolitica, Vibrio sp., Norovirus, or EHEC (Shiga Toxin 1 or Shiga Toxin 2) detected. 08/09/18 12:13 Nasal Wash Influenza Types A,B Antigen - Final Negative for FLU A and B antigen Infection due to influenza A or B cannot be ruled out since the antigen present in the sample may be below the detection limit of the test. Lab - Hematology Results 08/10/18 04:54 WBC 17.4 H RBC 3.85 L Hgb 11.3 L Hct 34.2 L MCV 88.7 MCH 29.4 MCHC 33.2 RDW 13.7 Plt Count 371 MPV 8.2 Prelim Diff (Auto) Slide review pending Neut % (Auto) 83.1 H Lymph % (Auto) 8.5 L [place] % (Auto) 6.8 Eos % (Auto) 0.9 Baso % (Auto) 0.7 Neut # (Auto) 14.5 H Lymph # (Auto) 1.5 [place] # (Auto) 1.2 H Eos # (Auto) 0.2 Baso # (Auto) 0.1 WBC Differential . Diff Scan Auto diff confirmed Differential Comment . Platelet Estimate Normal Platelet Morphology Normal Lab - Chemistry Results 08/10/18 04:54 Sodium 143 Potassium 3.8 Chloride 109 H D Carbon Dioxide 24.7 Anion Gap 9 BUN 10 Creatinine 0.86 Estimated GFR Greater than 89 Random Glucose 83 Calcium 7.8 L D Total Bilirubin 1.8 H AST 30 ALT 44 Alkaline Phosphatase 136 H Total Protein 6.6 Albumin 2.4 L Imaging: ITS Impressions Chest X-Ray 08/09/18 11:07 CONCLUSION: 1. Minimal airspace disease at the left lung base, presumably atelectasis. Abdomen/Pelvis CT 08/09/18 11:08 CONCLUSION: 1. Complex 4.5 x 3.8 cm mass containing septations in the inferior segment 6 of the liver with adjacent. Pericapsular inflammatory stranding and suspected segmental thrombosed probable hepatic vein branch. Underlying liver parenchyma appears unremarkable without evidence for volume loss. Differential considerations include hepatic abscess versus hepatic malignancy although abscess is favored given the apparently normal appearance of the liver by CT. Correlation with clinical history and laboratory evaluation is recommended. Abscess Drainage CT 08/10/18 00:00 CONCLUSION: 1. Uncomplicated CT guided drainage. Assessment and Plan - Plan Impression Sepsis on admission due to liver process Liver abscess, likely pyogenic abscess - no obvious GB pathology or colon pathology - ?IE Known schizophrenia ?Endocarditis with seeding Recommendation Agree with current empiric antibiotics Continue Zosyn Continue Vanco Follow cultures - adjust Abx Psych following him and adjusting his psych meds Please call back if patient agreeable to me following and seeing him D/W Dr Ho
[2018-08-12] MEDS: Sod Chloride 0.9% Inj 1,000 ML IV.CONT SCH ×3 (01:49→13:44)
[2018-08-12] MEDS: Piperacil/Tazo 4.5 GM Premix 4.5 GM/100 ML BAG IV.SIG SCH ×4 (01:50→20:02)
[2018-08-12] MEDS: Vancomycin Inj 1,000 MG in Sodium Chlor 0.9% Inj 250 ML IV.SIG SCH ×2 (04:11→14:16)
[2018-08-12] MEDS: Senna/Docusate Sodium 8.6/50 MG Tablet PO SCH ×2 (08:39→20:01)
[2018-08-12] MEDS: buPROPion 100 MG ER 12 HR Tablet PO SCH ×2 (08:40→20:01)
--- NOTE | 2018-08-12 12:39 | P.PN ---
Subjective Interval history: Afebrile overnight Feels much better. He is refusing to see ID specialist and he is refusing Vancomycin says he doesn't want to harm his kidney and that he is not a life or case. Otherwise says RUQ pain is better controlled. Drain in place. No fever or chills overnight. No n/v/d/c. Physical Exam Vital signs: Vital Signs 08/11/18 16:00 08/11/18 20:00 08/12/18 00:00 Temperature 99.7 F H 99.3 F 98.8 F Pulse Rate 99 H 77 84 Respiratory Rate 18 18 18 Blood Pressure 128/70 127/62 113/68 Pulse Oximetry 96 99 98 08/12/18 04:00 08/12/18 08:00 08/12/18 09:00 Temperature 98.5 F 98.1 F Pulse Rate 84 92 H 67 Respiratory Rate 18 18 Blood Pressure 119/66 115/55 L Pulse Oximetry 98 97 Intake & Output 08/11/18 08/12/18 08/12/18 18:59 06:59 18:59 Intake Total 3000 / 3000 1680 / 1680 100 / 100 Output Total Balance 2990 / 2990 1660 / 1660 100 / 100 Weight 71.6 kg Intake: IV 1200 / 1200 1200 / 1200 100 / 100 NS Inj 1,000 ML @ 100 mls/hr IV 1000 / 1000 1000 / 1000 .CONT .Q10H MAL Rx#:[id number] Zosyn 4.5 GM Premix 4.5 gm In 200 / 200 200 / 200 100 / 100 100 ml @ 200 mls/hr IV.SIG Q6H MAL Rx#:[id number] Oral 1800 / 1800 480 / 480 Output: Wound Drainage Right Abdomen Other: # Voids 4 2 Date of Last Bowel Movement 08/11/18 08/11/18 Narrative: GENERAL: 58 yo male, appears in nad. Not talking but is communicating by shaking his head yes and no and also by writing. CARDIOVASCULAR: Regular rate and rhythm. RESPIRATORY: No accessory muscle use. Clear to auscultation. Breath sounds equal bilaterally. GASTROINTESTINAL: Abdomen soft, tenderness with palpation on right upper quadrant, nondistended. Drain right upper quadrant in place with significant drainage. MUSCULOSKELETAL: Extremities without clubbing, cyanosis, or edema. No obvious deformities. NEUROLOGICAL: Awake and alert. No obvious cranial nerve deficits. Motor grossly within normal limits. Five out of 5 muscle strength in the arms and legs. Normal speech. PSYCHIATRIC: Not talking but is communicating by shaking his head yes and no and also by writing. Results - Labs CBC & Chem 7: 08/10/18 04:54 08/10/18 04:54 Microbiology 08/09/18 11:23 Blood - Peripheral Aerobic Blood Culture - Preliminary No growth in 3 days 08/09/18 11:23 Blood - Peripheral Anaerobic Blood Culture - Preliminary No growth in 3 days 08/09/18 11:28 Blood - Peripheral Aerobic Blood Culture - Preliminary No growth in 3 days 08/09/18 11:28 Blood - Peripheral Anaerobic Blood Culture - Preliminary No growth in 3 days 08/10/18 16:11 Fluid - Other Gram Stain - Final 08/10/18 16:11 Fluid - Other Body Fluid Culture - Preliminary No growth in 48 hours 08/10/18 16:11 Abscess - Abdominal Acid Fast Bacilli Smear - Final No acid fast bacilli seen 08/10/18 16:11 Abscess - Abdominal Fungal Smear - Final No fungal elements seen Assessment and Plan - Plan 58-year-old male with With sepsis meeting criteria patient with fevers, leukocytosis, tachycardia, possible liver abscess. Liver abscess. Patient presented with right upper quadrant abdominal pain, fever chills, nausea and diarrhea. LA normal at admission Chest X-Ray reviewed Minimal airspace disease at the left lung base, likely atelectasis. Abdomen/Pelvis CT reviewed and findings discussed with ED physician and also with the patient 1. Complex 4.5 x 3.8 cm mass containing septations in the inferior segment 6 of the liver with adjacent. Pericapsular inflammatory stranding and suspected segmental thrombosed probable hepatic vein branch. Underlying liver parenchyma appears unremarkable without evidence for volume loss. Differential considerations include hepatic abscess versus hepatic malignancy although abscess is favored given the apparently normal appearance of the liver by CT. Blood cultures obtained in the ED follow up results Continue with the patient in IV abx vancomycin and Zosyn ID consulted for eval. Consult IR s/status post p CT guided aspiration and drain placement of abscess on 08/10/18 Pain meds per pain scale Tylenol for fevers The patient is refusing vancomycin. She is also refusing seen infectious disease specialist. H/o schizophrenia. Patient chooses not to talk but communicated by writing and nodding yes/ no . Says he doesn't know the name of the meds he is taking, but he is compliant with meds. Consult psychiatry for evaluation and recommendations. Spoke with Dr Villegas who evaluate patient, restarted his home meds. Patient doesn't meet inpatient criteria at this time per psych. Will continue to monitor and will notify psychiatry service if any changes. Appreciate consult and recommendations from psychiatry service. DVT ppx SCD/TEDS/ ambulation Discussed with the patient, nurse
[2018-08-13] MEDS: Sod Chloride 0.9% Inj 1,000 ML IV.CONT SCH ×3 (01:23→20:12)
[2018-08-13] MEDS: Piperacil/Tazo 4.5 GM Premix 4.5 GM/100 ML BAG IV.SIG SCH ×4 (02:05→20:12)
[2018-08-13] MEDS: Vancomycin Inj 1,000 MG in Sodium Chlor 0.9% Inj 250 ML IV.SIG SCH ×2 (02:41→14:54)
[2018-08-13 05:56] LABS: Baso # (Auto) 0.1 th/mm3 (0.0-0.2); Baso % (Auto) 0.9 % (0.0-2.0); Eos # (Auto) 0.2 th/mm3 (0.0-0.4); Eos % (Auto) 1.7 % (0.0-4.0); Hematocrit 36.1 % (39.0-51.0); Hemoglobin 11.9 gm/dL (13.0-17.0); Lymph # (Auto) 2.5 th/mm3 (1.0-4.8); Lymph % (Auto) 20.7 % (9.0-44.0); Mean Corpuscular Hemoglobin 29.2 pg (27.0-34.0); Mean Corpuscular Volume 88.3 fL (80.0-100.0); Mono # (Auto) 0.8 th/mm3 (0.0-0.9); Neut # (Auto) 8.3 th/mm3 (1.8-7.7); Neut % (Auto) 69.7 % (16.0-70.0); Platelet Count 501 th/mm3 (150-450); Red Blood Count 4.09 mil/mm3 (4.50-5.90); White Blood Count 11.9 th/mm3 (4.0-11.0)
[2018-08-13 06:23] LABS: Calcium 8.2 mg/dL (8.5-10.1); Carbon Dioxide 27.2 meq/L (21.0-32.0); Potassium 3.9 meq/L (3.5-5.1)
[2018-08-13] MEDS: buPROPion 100 MG ER 12 HR Tablet PO SCH ×2 (09:33→20:12)
[2018-08-13] MEDS: Senna/Docusate Sodium 8.6/50 MG Tablet PO SCH ×2 (10:28→20:12)
--- NOTE | 2018-08-13 15:18 | P.PN ---
Subjective Interval history: The patient is in the chair. Says he feels better. Drain in place. Patient says he would rather not have antibiotics. Denies any fever or chills. No much pain. No nausea vomiting no diarrhea constipation. Physical Exam Vital signs: Vital Signs 08/12/18 16:00 08/12/18 20:00 08/13/18 00:00 Temperature 99.5 F 99.5 F 99.8 F H Pulse Rate 68 67 57 L Respiratory Rate 18 18 18 Blood Pressure 133/66 158/77 H 123/79 Pulse Oximetry 99 95 95 08/13/18 04:00 08/13/18 04:12 08/13/18 08:00 Temperature 99.0 F 98.5 F Pulse Rate 83 82 60 Respiratory Rate 17 17 Blood Pressure 140/61 144/69 H Pulse Oximetry 96 100 08/13/18 09:00 08/13/18 12:00 Temperature 98.8 F Pulse Rate 60 70 Respiratory Rate 18 Blood Pressure 162/73 H Pulse Oximetry 95 Intake & Output 08/12/18 08/13/18 08/13/18 18:59 06:59 18:59 Intake Total 1160 / 1160 1560 / 1560 1100 / 1100 Output Total 3 / 3 Balance 1160 / 1160 1557 / 1557 1100 / 1100 Weight 70 kg Intake: IV 200 / 200 1200 / 1200 1100 / 1100 NS Inj 1,000 ML @ 100 mls/hr IV 1000 / 1000 1000 / 1000 .CONT .Q10H [facility] Rx#:[id number] Zosyn 4.5 GM Premix 4.5 gm In 200 / 200 200 / 200 100 / 100 100 ml @ 200 mls/hr IV.SIG Q6H MAL Rx#:[id number] Oral 960 / 960 360 / 360 Output: Wound Drainage 3 / 3 Right Abdomen 3 / 3 Other: # Voids 4 2 Date of Last Bowel Movement 08/11/18 08/13/18 # Bowel Movements 1 Narrative: GENERAL: 58 yo male, appears in nad. Not talking but is communicating by shaking his head yes and no and also by writing. CARDIOVASCULAR: Regular rate and rhythm. RESPIRATORY: No accessory muscle use. Clear to auscultation. Breath sounds equal bilaterally. GASTROINTESTINAL: Abdomen soft, tenderness with palpation on right upper quadrant, nondistended. Drain right upper quadrant in place with significant drainage. MUSCULOSKELETAL: Extremities without clubbing, cyanosis, or edema. No obvious deformities. NEUROLOGICAL: Awake and alert. No obvious cranial nerve deficits. Motor grossly within normal limits. Five out of 5 muscle strength in the arms and legs. Normal speech. PSYCHIATRIC: Not talking but is communicating by shaking his head yes and no and also by writing. Results - Labs CBC & Chem 7: 08/13/18 04:07 08/13/18 04:07 Laboratory Results - last 24 hr 08/13/18 08/13/18 04:07 04:07 WBC 11.9 H RBC 4.09 L Hgb 11.9 L Hct 36.1 L MCV 88.3 MCH 29.2 MCHC 33.0 RDW 14.0 Plt Count 501 H D MPV 8.0 Neut % (Auto) 69.7 Lymph % (Auto) 20.7 [place] % (Auto) 7.0 Eos % (Auto) 1.7 Baso % (Auto) 0.9 Neut # (Auto) 8.3 H Lymph # (Auto) 2.5 [place] # (Auto) 0.8 Eos # (Auto) 0.2 Baso # (Auto) 0.1 WBC Differential . Differential Comment Auto diff final Sodium 147 H Potassium 3.9 Chloride 110 H Carbon Dioxide 27.2 Anion Gap 10 BUN 9 Creatinine 0.95 Estimated GFR 82 L Random Glucose 87 Calcium 8.2 L Microbiology 08/09/18 11:23 Blood - Peripheral Aerobic Blood Culture - Preliminary No growth in 4 days 08/09/18 11:23 Blood - Peripheral Anaerobic Blood Culture - Preliminary No growth in 4 days 08/09/18 11:28 Blood - Peripheral Aerobic Blood Culture - Preliminary No growth in 4 days 08/09/18 11:28 Blood - Peripheral Anaerobic Blood Culture - Preliminary No growth in 4 days 08/10/18 16:11 Fluid - Other Gram Stain - Final 08/10/18 16:11 Fluid - Other Body Fluid Culture - Final No growth in 72 hours (aerobically and anaerobically ) Assessment and Plan - Plan 58-year-old male with With sepsis meeting criteria patient with fevers, leukocytosis, tachycardia, possible liver abscess. Liver abscess. Patient presented with right upper quadrant abdominal pain, fever chills, nausea and diarrhea. LA normal at admission Chest X-Ray reviewed Minimal airspace disease at the left lung base, likely atelectasis. Abdomen/Pelvis CT reviewed and findings discussed with ED physician and also with the patient 1. Complex 4.5 x 3.8 cm mass containing septations in the inferior segment 6 of the liver with adjacent. Pericapsular inflammatory stranding and suspected segmental thrombosed probable hepatic vein branch. Underlying liver parenchyma appears unremarkable without evidence for volume loss. Differential considerations include hepatic abscess versus hepatic malignancy although abscess is favored given the apparently normal appearance of the liver by CT. Blood cultures obtained in the ED follow up results Continue with the patient in IV abx vancomycin and Zosyn ID consulted for eval. Consult IR s/status post p CT guided aspiration and drain placement of abscess on 08/10/18 Pain meds per pain scale Tylenol for fevers The patient is refusing vancomycin. She is also refusing seen infectious disease specialist. H/o schizophrenia. Patient chooses not to talk but communicated by writing and nodding yes/ no . Says he doesn't know the name of the meds he is taking, but he is compliant with meds. Consult psychiatry for evaluation and recommendations. Spoke with Dr Villegas who evaluate patient, restarted his home meds. Patient doesn't meet inpatient criteria at this time per psych. Will continue to monitor and will notify psychiatry service if any changes. Appreciate consult and recommendations from psychiatry service. DVT ppx SCD/TEDS/ ambulation Discussed with the patient, nurse Discharge plan: Pending improvement and clearance by consultants. Patient has liver abscess S/P percutaneous drainage by IR on IV antibiotics, infectious disease also following. Monitor cultures. Also notes that patient is not talking and he is with his schizophrenia. He is communicating by writing. Refusing antibiotics on and off. Also psychiatry is consulted.
[2018-08-14] MEDS: Vancomycin Inj 1,000 MG in Sodium Chlor 0.9% Inj 250 ML IV.SIG SCH ×2 (02:39→15:43)
[2018-08-14] MEDS: Piperacil/Tazo 4.5 GM Premix 4.5 GM/100 ML BAG IV.SIG SCH ×3 (02:39→13:05)
[2018-08-14] MEDS: Sod Chloride 0.9% Inj 1,000 ML IV.CONT SCH ×2 (06:12→15:51)
[2018-08-14 07:50] LABS: Bacteria,Urine Occasional /hpf; Bilirubin,Urine Negative (Negative); Clarity,Urine Clear (Clear); Color,Urine Yellow (Yellw/Straw); Glucose,Urine (UA) Negative (Negative); Leukocyte Esterase,Urine Negative (Negative); Mucus,Urine Few /lpf (Occasional); Nitrite,Urine Negative (Negative); Specific Gravity,Urine 1.017 (1.002-1.035)
[2018-08-14] MEDS: Senna/Docusate Sodium 8.6/50 MG Tablet PO SCH ×2 (08:21→20:20)
[2018-08-14] MEDS: buPROPion 100 MG ER 12 HR Tablet PO SCH ×2 (08:22→20:20)
--- NOTE | 2018-08-14 08:39 | P.PN ---
Subjective Interval history: Pt seen and examined for f/u hepatic abscess s/p CT-guided drain and schizophrenia. Continues to be selectively mute. Does not speak to me. Only writes down. After about three minutes in the room, the patient wrote down "GET OUT, THANKS." Refused any further conversation or to be examined. Continues to refuse IV antibiotics. Not allowing ID to see him either. Physical Exam Vital signs: Vital Signs 08/13/18 09:00 08/13/18 12:00 08/13/18 16:00 Temperature 98.8 F 99.4 F Pulse Rate 60 70 78 Respiratory Rate 18 18 Blood Pressure 162/73 H 150/93 H Pulse Oximetry 95 99 08/13/18 20:00 08/13/18 20:13 08/14/18 00:02 Temperature 99.4 F Pulse Rate 77 78 68 Respiratory Rate 18 Blood Pressure 161/82 H Pulse Oximetry 99 08/14/18 08:00 Temperature Pulse Rate 80 Respiratory Rate 16 Blood Pressure 138/77 Pulse Oximetry 100 Intake & Output 08/13/18 08/14/18 08/14/18 18:59 06:59 18:59 Intake Total 1340 / 1340 1999 Balance 1340 / 1340 1999 Weight 70 kg Intake: IV 1100 / 1100 1999 NS Inj 1,000 ML @ 100 mls/hr IV 1000 / 1000 1999 .CONT .Q10H MAL Rx#:[id number] Zosyn 4.5 GM Premix 4.5 gm In 100 / 100 100 ml @ 200 mls/hr IV.SIG Q6H MAL Rx#:[id number] Oral 240 / 240 Other: # Voids 2 3 Date of Last Bowel Movement 08/13/18 # Bowel Movements 1 Narrative: Refuses exam but based on my observation the patient is a well-nourished, well- developed male who refuses to speak. No visible rash or jaundice. He is seen ambulating the room without antalgic gait. RUQ drain visualized with minimal serosanguineous output. He is breathing comfortably on room air. Not coughing or dyspneic. Does not appear to be in pain. Seems agitated. Results - Labs CBC & Chem 7: 08/13/18 04:07 08/13/18 04:07 Laboratory Results - last 24 hr 08/14/18 06:35 Urine Color Yellow Urine Clarity Clear Urine pH 5.0 Ur Specific [place] 1.017 Urine Protein Negative Urine Glucose (UA) Negative Urine Ketones Negative Urine Occult Blood Moderate H Urine Nitrate Negative Urine Bilirubin Negative Urine Urobilinogen Less than 2 Ur Leukocyte Esterase Negative Urine RBC 9 H Urine WBC 1 Urine Bacteria Occasional H Urine Mucus Few H Micro UA Comment Culture not ind Ur Microscopic Review Not Reportable Urine Culture Comments Culture not ind Microbiology 08/09/18 11:23 Blood - Peripheral Aerobic Blood Culture - Preliminary No growth in 4 days 08/09/18 11:23 Blood - Peripheral Anaerobic Blood Culture - Preliminary No growth in 4 days 08/09/18 11:28 Blood - Peripheral Aerobic Blood Culture - Preliminary No growth in 4 days 08/09/18 11:28 Blood - Peripheral Anaerobic Blood Culture - Preliminary No growth in 4 days 08/10/18 16:11 Fluid - Other Gram Stain - Final 08/10/18 16:11 Fluid - Other Body Fluid Culture - Final No growth in 72 hours (aerobically and anaerobically ) Assessment and Plan - Assessment (1) Abscess, hepatic Code(s): K75.0 - Abscess of liver Status: Acute - Plan 58-year-old male with a history of schizophrenia admitted on 08/09 after presenting with RUQ abdominal pain, fever, and diarrhea. CT A/P revealed what appeared to be hepatic abscess. ID and IR consulted. Patient underwent CT- guided drainage of the abscess on 08/10. It was recommended the patient be treated with broad-spectrum IV antibiotics, but unfortunately the patient has been refusing antibiotics for the past couple days. Psychiatry is also following. 1. Hepatic abscess CT A/P revealed a 4.5 x 3.8 cm mass containing septations in the inferior segment of the liver with adjacent pericapsular inflammatory stranding and suspected segmental thrombosis probable hepatic vein branch White count up to 21.5 on admission, with left shift. Trending down LFTs WNL IR consulted and patient underwent CT-guided drainage on 08/10 with approximately 20 cc of purulent fluid removed and sent for analysis. He has had minimal serosanguineous output and I are planning on removing the drain tomorrow ID consulted earlier in course and recommending IV vancomycin and Zosyn. However, patient has been refusing IV antibiotics off and on since 08/11 and is no longer allowing ID to see him Blood, stool, and abscess cultures negative 2-4 weeks of parenteral therapy generally warranted but since patient refusing will at least cover with Levaquin and Flagyl 2. 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 Calling psych to reevaluate patient.
[2018-08-14] MEDS: metroNIDAZOLE 500 MG Tablet PO SCH ×2 (17:57→23:30)
[2018-08-14] MEDS: levoFLOXacin 750 MG Tablet PO SCH (17:57)
[2018-08-15] MEDS: Sod Chloride 0.9% Inj 1,000 ML IV.CONT SCH ×4 (02:50→23:06)
[2018-08-15] MEDS: metroNIDAZOLE 500 MG Tablet PO SCH ×3 (05:32→21:15)
[2018-08-15] MEDS: buPROPion 100 MG ER 12 HR Tablet PO SCH ×2 (09:12→21:12)
[2018-08-15] MEDS: Senna/Docusate Sodium 8.6/50 MG Tablet PO SCH ×2 (09:14→21:15)
[2018-08-15] MEDS: levoFLOXacin 750 MG Tablet PO SCH (09:14)
--- NOTE | 2018-08-15 10:09 | P.PN ---
Subjective Interval history: Follow-up bacteremia. Patient seen and examined sitting ultrasound of blood appears to be in no acute distress. Patient greets me however asks to be seen by male provider. Patient denies any questions or concerns at this moment. Nurse reports patient has been refusing antibiotics as well as physical exam. Physical Exam Vital signs: Vital Signs 08/14/18 12:00 08/14/18 16:00 08/15/18 06:02 Temperature 97.3 F L Pulse Rate 72 75 95 H Respiratory Rate 18 18 Blood Pressure 137/68 139/79 119/69 Pulse Oximetry 100 100 100 08/15/18 08:00 Temperature 97.8 F Pulse Rate 95 H Respiratory Rate Blood Pressure 143/76 H Pulse Oximetry Intake & Output 08/14/18 08/15/18 08/15/18 18:59 06:59 18:59 Intake Total 1800 / 1800 1000 / 1000 Output Total 20 / 20 Balance 1780 / 1780 1000 / 1000 Intake: IV 1000 / 1000 1000 / 1000 NS Inj 1,000 ML @ 100 mls/hr IV 1000 / 1000 1000 / 1000 .CONT .Q10H MAL Rx#:[id number] Oral 800 / 800 Output: Wound Drainage 20 Right Abdomen 20 / Other: # Voids 3 0 Narrative: Patient is refusing exam, seen sitting on the side of the bed and in no acute distress. Speech is clear, moving all extremities. Results - Labs CBC & Chem 7: 08/13/18 04:07 08/13/18 04:07 Microbiology 08/09/18 11:28 Blood - Peripheral Aerobic Blood Culture - Final No growth in 5 days 08/09/18 11:28 Blood - Peripheral Anaerobic Blood Culture - Final Fusobacterium species 08/09/18 11:23 Blood - Peripheral Aerobic Blood Culture - Final No growth in 5 days 08/09/18 11:23 Blood - Peripheral Anaerobic Blood Culture - Preliminary No growth in 4 days Assessment and Plan - Assessment (1) Abscess, hepatic Code(s): K75.0 - Abscess of liver Status: Acute - Plan 58-year-old male with a history of schizophrenia admitted on 08/09 after presenting with RUQ abdominal pain, fever, and diarrhea. CT A/P revealed what appeared to be hepatic abscess. ID and IR consulted. Patient underwent CT- guided drainage of the abscess on 08/10. It was recommended the patient be treated with broad-spectrum IV antibiotics, but unfortunately the patient has been refusing antibiotics for the past couple days. Psychiatry is also following. 1. Hepatic abscess CT A/P revealed a 4.5 x 3.8 cm mass containing septations in the inferior segment of the liver with adjacent pericapsular inflammatory stranding and suspected segmental thrombosis probable hepatic vein branch White count up to 21.5 on admission, with left shift. Trending down LFTs WNL IR consulted and patient underwent CT-guided drainage on 08/10 with approximately 20 cc of purulent fluid removed and sent for analysis. He has had minimal serosanguineous output and I are planning on removing the drain tomorrow ID consulted earlier in course and recommending IV vancomycin and Zosyn. However, patient has been refusing IV antibiotics off and on since 08/11 and is no longer allowing ID to see him Blood, stool, and abscess cultures negative 2-4 weeks of parenteral therapy generally warranted but since patient refusing will at least cover with Levaquin and Flagyl. Patient is also refusing oral antibiotics. 2. Sepsis - resolved Met sepsis criteria on admission with fever, leukocytosis and source of infection (hepatic abscess) Lactic acid was normal Treating hepatic abscess as above -Recheck CBC in the a.m. 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 Will reconsult psychiatry for further recommendations, appreciate assistance. DVT prophylaxis: ambulatory Discussed Condition With: Discussed with patient and RN. Patient was discussed with , he has also spoken with patient.
--- NOTE | 2018-08-15 12:02 | CT ---
EXAM DATE: 08/15/2018 10:57 AM EDT AGE/SEX: 58 years / Male INDICATIONS: Evaluate abscess. CLINICAL DATA: This is the patient's subsequent encounter. Patient reports that signs and symptoms h ave been present for 1 week and indicates a pain score of 0/10. MEDICAL/SURGICAL HISTORY: Gastroesophageal reflux disease. Schizophrenia. None. RADIATION DOSE: 5.31 CTDI (mGy) [place] [facility] [place]/2018. . TECHNIQUE: Multiple contiguous axial images were obtained through the abdomen. Images were obtained using multiple row detector helical technique. Using automated exposure control and adjustment of the mA and/or kV according to patient size, radiation dose was kept as low as reasonably achievable to o btain optimal diagnostic quality images. DICOM format image data is available electronically for rev iew and comparison. FINDINGS: Lower Lungs: The visualized lower lungs are clear. Liver: There has been interval placement of a percutaneous drainage catheter into the low-density abs cess in the inferior right lobe of the liver. The abscess has decreased in size with mild residual lo w density which is poorly defined. The abscess appears to measure approximately 2.7 cm in greatest di ameter compared to 4.1 cm on the prior study. Spleen: Homogeneous density without enlargement. Pancreas: Unremarkable without mass or calcification. Kidneys: Normal in size and shape. No evidence of mass or hydronephrosis. Adrenal Glands: Unremarkable. Aorta: The aorta and proximal iliac vessels are grossly unremarkable without aneurysmal dilation. Bowel/Mesentery: The bowel loops are grossly unremarkable. The cecum and sigmoid colon have a normal configuration. Abdominal Wall: Intact. Retroperitoneum: No evidence of adenopathy in the retrocrural, para-aortic, or deep pelvic regions. Bladder: Contours are smooth. Reproductive Organs: No abnormal masses or calcifications seen. Inguinal: The inguinal region is unremarkable without evidence of adenopathy. Bony Structures: Unremarkable. CONCLUSION: 1. Interval placement of percutaneous drainage catheter into the hepatic abscess. Abscess is smaller in size but not well delineated. Low density abscess now measure approximately 2.7 cm in greatest di ameter compared to 4.1 cm on the prior study. Electronically signed by: Shailesh Ventura MD 08/15/2018 12:00 PM EDT
[2018-08-16] MEDS: Sod Chloride 0.9% Inj 1,000 ML IV.CONT SCH ×3 (06:12→17:05)
[2018-08-16] MEDS: metroNIDAZOLE 500 MG Tablet PO SCH ×3 (06:15→22:21)
[2018-08-16] MEDS: Senna/Docusate Sodium 8.6/50 MG Tablet PO SCH ×2 (09:06→22:21)
[2018-08-16] MEDS: buPROPion 100 MG ER 12 HR Tablet PO SCH ×2 (09:06→22:17)
[2018-08-16] MEDS: levoFLOXacin 750 MG Tablet PO SCH (09:06)
--- NOTE | 2018-08-16 11:41 | P.PN ---
Subjective Interval history: Follow-up visit for hepatic abscess. Patient is seen in his room ambulating in and appears to be in no acute distress. I introduce myself when I go into the room, however patient states "I prefer a male doctor, I already told you that. Have a nice day". Call placed to IR department, the drain will remain in for at least one more day per Dr. Barker. Discussed with who reports patient does not want to speak with him this morning for reevaluation. Patient continues to refuse medications including antibiotics. Physical Exam Vital signs: Vital Signs 08/15/18 12:00 08/15/18 18:12 08/15/18 20:00 Temperature 97.6 F 97.8 F 97.5 F L Pulse Rate 98 H 76 Respiratory Rate 18 18 Blood Pressure 119/69 117/70 133/71 Pulse Oximetry 98 100 08/16/18 04:00 Temperature 98.7 F Pulse Rate 85 Respiratory Rate 16 Blood Pressure 99/59 L Pulse Oximetry 100 Intake & Output 08/15/18 08/16/18 08/16/18 18:59 06:59 18:59 Intake Total 2000 / 2000 1000 / 1000 1000 / 1000 Output Total 20 / 20 Balance 2000 / 1999 980 / 980 1000 / 1000 Weight 69.1 kg Intake: IV 1000 / 1000 1000 / 1000 1000 / 1000 NS Inj 1,000 ML @ 100 mls/hr IV 1000 / 1000 1000 / 1000 1000 / 1000 .CONT .Q10H MAL Rx#:[id number] Oral 1000 / 1000 Output: Wound Drainage 20 / 20 Right Abdomen 20 / 20 Other: # Voids 3 0 # Bowel Movements 1 Narrative: Patient is refusing exam, seen ambulating in his room and appears to be in no acute distress. Speech is clear, moving all extremities. Results - Labs CBC & Chem 7: 08/13/18 04:07 08/13/18 04:07 Microbiology 08/09/18 11:23 Blood - Peripheral Aerobic Blood Culture - Final No growth in 5 days 08/09/18 11:23 Blood - Peripheral Anaerobic Blood Culture - Final Fusobacterium species - Imaging Impressions Abdomen/Pelvis CT 08/15/18 10:44 CONCLUSION: 1. Interval placement of percutaneous drainage catheter into the hepatic abscess. Abscess is smaller in size but not well delineated. Low density abscess now measure approximately 2.7 cm in greatest diameter compared to 4.1 cm on the prior study. Assessment and Plan - Assessment (1) Abscess, hepatic Code(s): K75.0 - Abscess of liver Status: Acute - Plan 58-year-old male with a history of schizophrenia admitted on 08/09 after presenting with RUQ abdominal pain, fever, and diarrhea. CT A/P revealed what appeared to be hepatic abscess. ID and IR consulted. Patient underwent CT- guided drainage of the abscess on 08/10. It was recommended the patient be treated with broad-spectrum IV antibiotics, but unfortunately the patient has been refusing antibiotics for the past couple days. Psychiatry is also following. 1. Hepatic abscess CT A/P revealed a 4.5 x 3.8 cm mass containing septations in the inferior segment of the liver with adjacent pericapsular inflammatory stranding and suspected segmental thrombosis probable hepatic vein branch White count up to 21.5 on admission, with left shift. Trending down LFTs WNL IR consulted and patient underwent CT-guided drainage on 08/10 with approximately 20 cc of purulent fluid removed and sent for analysis. - CT 08/15 with interval placement of percutaneous drain catheter into the hepatic abscess. Abscess was noted to be smaller but not well delineated. Low density abscess now measuring 2.7cm in greatest diameter compared to 4.1cm. - Call placed to IR per Dr. Barker drain will remain in for today, possible DC tomorrow. ID consulted earlier in course and recommending IV vancomycin and Zosyn. However, patient has been refusing IV antibiotics off and on since 08/11 and is no longer allowing ID to see him Blood, stool, and abscess cultures negative 2-4 weeks of parenteral therapy generally warranted but since patient refusing will at least cover with Levaquin and Flagyl. Patient is also refusing oral antibiotics. 2. Sepsis - resolved Met sepsis criteria on admission with fever, leukocytosis and source of infection (hepatic abscess) Lactic acid was normal Treating hepatic abscess as above -CBC and BC uncollected as patient refusing. 3. Schizophrenia Mutism and refusal of IV antibiotics and PO. Psychiatry was consulted earlier in course and patient did not inpatient psychiatric admission. Reconsult psychiatry for further recommendations, discussed with who feels patient does not have capacity to make decisions at this moment. - Recommendations to increase Haldol to 80mg HS and when medically stable transfer to medical psych unit. Hopefully once hepatic drain is removed. DVT prophylaxis: ambulatory Discussed Condition With: RN, , and Discharge Planning: Will need prolonged antibiotics, but refusing these. Hopefully with increase in Haldol his psychosis will improve and he will become compliant with antibiotics.
--- NOTE | 2018-08-16 11:50 | P.PNPSY ---
Subjective Remarks: Patient seen today for psychiatric reevaluation. Case discussed with primary medical team. Patient was found behind cortins of his room and initially refusing to leave and cooperate. Then, he came out and walked to the door asking to leave his room. Patient was verbal this time and stated he does not want to speak with psychiatry and he does not want to see me again. I tried to redirect the conversation and he says he has his psychiatrist and he is taking his medications.When I tried to asked him his reason to refused antibiotics he says he does not need to take antibiotics. Patient is definitely acutely paranoid, and internally preoccupied. When I left the room the patient went back to his position behind the cortin, but from the window I noted he was talking to him self quite animated. Mental Status Examination Appearance: Appropriate Consciousness: Alert Orientation: x4 Motor Activity: Normal gait Speech: Hesitant Language: Adequate Fund of Knowledge: Adequate Memory: Unremarkable Mood: Angry, Oppositional Affect: Irritable Thought Process & Associations: Logical Thought Content: Bizarre thinking, Delusional, Obsessions Hallucination Type: None Delusion Type: Paranoid Suicidal Ideation: No Suicidal Plan: No Suicidal Intention: No Homicidal Ideation: No Homicidal Plan: No Homicidal Intention: No Insight: Poor Judgment: Poor (MSE is limited due to the mutism) Assessment and Plan - Assessment (1) Schizophrenia Code(s): F20.9 - Schizophrenia, unspecified Status: Acute - Plan Plan: This patient is definitely acutely psychotic, paranoid and internally preoccupied. He is unable to espresso a rational choice to refused treatment, is unable to verbalized understanding and appreciation of current medical condition, not able to express consequences of his decision and seem to have a severe reality distortion at the moment and for this reason he does not have decision making capacity to refuse treatment at this moment. Will increase Geodon to 80 HS. This patient might benefit of transferring to med/psy once medically appropriate I will follow up. . Justification for Continued Inpatient Stay: Might need admission. To be discuss with primary team.
[2018-08-17] MEDS: metroNIDAZOLE 500 MG Tablet PO SCH ×2 (06:20→16:11)
[2018-08-17] MEDS: levoFLOXacin 750 MG Tablet PO SCH (11:26)
[2018-08-17] MEDS: buPROPion 100 MG ER 12 HR Tablet PO SCH (11:27)
[2018-08-17] MEDS: Senna/Docusate Sodium 8.6/50 MG Tablet PO SCH (11:27)
[2018-08-17] MEDS: Sod Chloride 0.9% Inj 1,000 ML IV.CONT SCH ×2 (11:32→16:23)
[2018-08-17 12:40] VITALS: BP 117/81; PULSE 81; RESP 18; TEMP 98.7; O2SAT 99
--- NOTE | 2018-08-17 14:03 | P.DS ---
Date of admission: 08/09/18 13:46 Primary care physician: UNKNOWN Attending physician on discharge: Dot Lacey Anticipated date of discharge: 08/17/18 Brief History from admission: 58-year-old male with past medical history of schizophrenia presents to the emergency department for evaluation abdominal pain, fever, chills, diarrhea for 1 week. Patient does not speak. He writes and shakes his head to questions with yes/no. He does state that he understands me. When asked if he is capable of speaking but chooses not to, he shakes his head yes. The patient does have history of schizophrenia according to the chart. Patient says he does not know the name of the medications, but he reports compliance of taking his medications for schizophrenia. He will not talk at all. The patient denies any chest pain, cough, shortness of breath. He denies nausea and vomiting. He reports right-sided - RUQ abdominal pain. He has diarrhea 3 times overnight and one time in the morning no blood in it. Associated fevers and chills. He denies having any other chronic medical problems. He denies allergies. He denies alcohol abuse. He denies any drug use. Moderate severity. He denies any previous abdominal surgeries. DS: Diagnosis - Discharge Diagnosis (1) Abscess, hepatic Status: Acute DS: Medications - Discharge Medications Prescriptions: levofloxacin 750 mg PO DAILY #7 tab metronidazole 500 mg PO Q8HR #21 tab ziprasidone HCl [Geodon] 80 mg PO HS #30 cap DS: Summary Hospital Course: 58-year-old male with past medical history significant for schizophrenia who presented to the emergency department on 08/09 for evaluation of abdominal pain, fevers, chills, and diarrhea. On admission patient met sepsis criteria due to fever, leukocytosis and suspected source of infection. Patient underwent CT of abdomen pelvis revealing 4.5 x 3.8 cm mass containing septations in the inferior segment of the liver with adjacent pericapsular inflammatory standing and suspected segmental thrombus probable hepatic vein branch. Patient was started on empiric antibiotics and underwent CT-guided drainage on 08/10 with approximately 20 cc of purulent fluid removed and sent for analysis. Interventional radiology also placed. Infectious disease services were consulted and patient was evaluated by who recommended continuing IV vancomycin and Zosyn. Patient was not agreeable with ongoing evaluation by infectious disease therefore no further follow-up was performed by ID. Patient refused IV antibiotics therefore trial of p.o. Levaquin and Flagyl were started. Initially patient agreed to take these medications however has been refusing these as well. Patient had a repeat CT scan on 08/15 which showed interval placement of percutaneous drain catheter into the hepatic abscess. Abscess was noted to be smaller but not well delineated. Low density abscess now measuring 2.7cm in greatest diameter compared to 4.1cm. Psychiatry was consulted due to patient's ongoing refusal of medications.. Patient was seen and evaluated by Dr. Villegas who felt patient did not have capacity to make medical decisions. Patient's Haldol was increased to 80 mg at bedtime, recommendations for transfer to medical psychiatry unit once medically stable. Call was placed to interventional radiology, RONALD drain to continue to remain in place. While patient has been in medical floor patient continues to be paranoid and refusing medications. Patient will be discharged to medical psychiatry unit, [place] act placed by psychiatry. Medical team to continue to follow as consultants once transferred. Discussed with . Return to the room to discuss with patient that he will be transferred. Patient reports that he does not want to be transferred, does not provide a clear answer as to why. Does not allow for physical exam as he is standing behind room curtains. - Time Spent with Patient Total time spent providing and/or coordinating discharge services: Greater than 30 minutes Exam Vital signs: Vital Signs 08/16/18 16:00 08/16/18 19:43 08/17/18 12:00 Temperature 99.1 F 98.5 F 98.7 F Pulse Rate 81 80 81 Respiratory Rate 17 17 18 Blood Pressure 119/68 126/69 117/81 Pulse Oximetry 99 100 99 Intake & Output 08/16/18 08/17/18 08/17/18 18:59 06:59 18:59 Intake Total 1999 1200 / 1200 200 / 200 Balance 1999 1200 / 1200 200 / 200 Weight 69.1 kg Intake: IV 1999 800 / 800 200 / 200 NS Inj 1,000 ML @ 100 mls/hr IV 1999 800 / 800 200 / 200 .CONT .Q10H MAL Rx#:[id number] Oral 400 / 400 Other: # Voids 3 Date of Last Bowel Movement 08/16/18 Narrative: Patient is refusing exam, patient continues to be paranoid. Results Procedures completed during hospitalization: 08/10 CT-guided abscess drain - Impressions ITS Impressions Chest X-Ray 08/09/18 11:07 CONCLUSION: 1. Minimal airspace disease at the left lung base, presumably atelectasis. Abscess Drainage CT 08/10/18 00:00 CONCLUSION: 1. Uncomplicated CT guided drainage. Abdomen/Pelvis CT 08/15/18 10:44 CONCLUSION: 1. Interval placement of percutaneous drainage catheter into the hepatic abscess. Abscess is smaller in size but not well delineated. Low density abscess now measure approximately 2.7 cm in greatest diameter compared to 4.1 cm on the prior study. Discharge Plan - Discharge Disposition Patient Disposition: 67 Disc To [facility] - Discharge Condition Condition: Stable - Discharge Order Discharge Orders: Discharge Order (Routine); Ordered 08/17/18 Ordered By: Stefani Marquez - Physicians Team Primary Care Provider: UNKNOWN, Attending Provider: Dot Lacey Other Providers: Keyona Lechuga MD ; Dada Villegas MD
== END 2018-08-17 17:17 ==
LOC: NEPE 09:40 → NEDA 13:46 → N07 16:28
PROVIDERS: ADMIT Hospitalist; ATTEND Hospitalist

== ENCOUNTER 2018-08-17 13:45 | Inpatient (IN) ==
[2018-08-17] MEDS ORDERED: Bisacodyl 10 MG Supp RECTAL PRN (20:32)
[2018-08-17] MEDS ORDERED: Aluminum/Magnesium/Simethacone Susp 30 ML UDC PO PRN (20:32)
[2018-08-17] MEDS: buPROPion 100 MG ER 12 HR Tablet PO SCH (20:39)
[2018-08-17] MEDS: metroNIDAZOLE 500 MG Tablet PO SCH (21:44)
[2018-08-17] MEDS: Senna/Docusate Sodium 8.6/50 MG Tablet PO SCH (21:44)
[2018-08-17] MEDS: levoFLOXacin 750 MG Tablet PO SCH (21:44)
[2018-08-18] MEDS: metroNIDAZOLE 500 MG Tablet PO SCH ×3 (05:08→21:23)
[2018-08-18] MEDS: buPROPion 100 MG ER 12 HR Tablet PO SCH ×2 (08:47→20:50)
[2018-08-18] MEDS: Senna/Docusate Sodium 8.6/50 MG Tablet PO SCH ×2 (08:49→21:22)
[2018-08-18] MEDS ORDERED: Aluminum/Magnesium/Simethacone Susp 30 ML UDC PO PRN (09:10)
[2018-08-18] MEDS ORDERED: LORazepam 1 MG Tablet PO PRN (09:10)
--- NOTE | 2018-08-18 10:25 | P.HPPSY ---
Provisional Diagnosis Admission Date: August 17, 2018 13:45 [place] I.: Schizophrenia Competence Certification of Person's Competence To Provide Express and Informed Consent I have personally examined Harish Uribe, a person being served at [facility] on, August 18, 2018 1024. Express and informed consent means consent voluntarily given in writing, by a competent person, after sufficient explanation and disclosure of the subject matter involved to enable the person to make a knowing and willful decision without any element of force, fraud, deceit, duress, or other form of constraint or coercion. This person is 18 years of age or older, is not now known to be incompetent to consent to treatment with a guardian advocate, and does not have a health care surrogate or proxy currently making medical treatment decisions. I have found this person to be one of the following: [] Competent to provide express and informed consent, as defined above, for voluntary admission to this facility and is competent to provide express and informed consent for treatment. He/she has the consistent capacity to make well reasoned, willful, and knowing decisions concerning his or her medical or mental health treatment. The person fully and consistently understands the purpose of the admission for examination/placement and is fully capable of personally exercising all rights assured under [place]xxx] Incompetent to provide express and informed consent to voluntary admission , and this is incompetent to provide express and informed consent to treatment. The person must be transferred to involuntary status and a petition for a guardian advocate filed with the Circuit Court. [] Refusing to provide express and informed consent to voluntary admission but is competent to provide express and informed consent for treatment. The person must be discharged or transferred to involuntary status. Form shall be completed within 24 hours of a person's arrival at the receiving facility and filed in the clinical record of each person: 1. Admitted on a voluntary basis 2. Permitted to provide express and informed consent to his/her own treatment 3. Allowed to transfer from involuntary to voluntary status 4. Prior to permitting a person to consent to his or her own treatment after having been previously found incompetent to consent to treatment. History of Present Illness Capacity: Lacks capacity History of Present Illness: Patient is a 58-year-old man, domiciled, unknown if employed, with a past psychiatric history of schizophrenia, previous psychiatric admissions, no previous suicide attempt as per chart,, on known substances past medical history but recent admission to medical floor for hepatic abscess which patient had required percutaneous drainage catheter but had refused antibiotics which prompted psychiatric beauty sales consultant was noted to be paranoid, talking to self and admitted subsequently to the inpatient psychiatry unit after medical stabilization. As per chart patient was initially seen by psychiatrist beauty sales consultant Dr. Melo during medical admission and his last encounter with the patient is as stated below: Patient was found behind cortins of his room and initially refusing to leave and cooperate. Then, he came out and walked to the door asking to leave his room. Patient was verbal this time and stated he does not want to speak with psychiatry and he does not want to see me again. I tried to redirect the conversation and he says he has his psychiatrist and he is taking his medications.When I tried to asked him his reason to refused antibiotics he says he does not need to take antibiotics. Patient is definitely acutely paranoid, and internally preoccupied. When I left the room the patient went back to his position behind the curtain, but from the window I noted he was talking to him self quite animated. Patient was noted to be ambulating on the unit prior to admission, noted be paranoid with staff. Patient was found in room noted to be reluctant to engage in interview noted to be irritable and refusing to cooperate with questioning. Patient state his mood is "pretty good" noted to be paranoid but denying any perceptional disturbances. Patient has been refusing antibiotic treatment but was unable to state why and continues to do so. When asked about history patient states that is all in the computer and that he needs to not have to repeat his history to every single person not noted to be coming agitated during interview. He was able to relate that he has been taking Geodon and Wellbutrin as prescribed at his outpatient provider at [facility] which he last saw 3 months ago. He also mentions having had history of state hospitalization in 2005. Patient refused to have further as a rental salesperson during this admission and referred to his home care scheduler which number he provided to be his rental salesperson. When treatment team attempted to contact this placed, Dr. Warren, he denied knowing the patient or his brother. Patient at this time does not have capacity to engage in medical decision making or treatment and will require brother to serve as health care surrogate and guardian advocate for this admission. Attempts to call brother with number in the chart was successful that is the wrong number. Patient's brother did visit last evening but did not leave contact number. We will attempt to obtain this #1 brother comes to visit today. Family psychiatric history: Unable to assess as patient refusing to cooperate. Past psychiatric history: Previous psychiatric diagnoses of schizophrenia, previous psychiatric admissions including state hospitalization in 2005, no previous suicide attempts as per chart, unknown if history of abuse, has outpatient mental provider at [facility] last seen 3 months ago. Medication regimen includes ziprasidone and bupropion. Substance use history: Unable to assess as patient refusing to cooperate. Past medical history: Unable to assess as patient refusing to cooperate., As per chart recent hepatic abscess as stated above. Allergies: NKDA Social history: Unable to assess as patient refusing to cooperate. - Inpatient Certification I certify that the inpatient services were ordered in accordance with Medicare regulations governing the order. This includes certification that hospital inpatient services are reasonable and necessary and in the case of services not specified as inpatient-only under 42 CFR 419.22(n), that they are appropriately provided as inpatient services in accordance to with the 2-midnight benchmark under 43 CFR 412.3(e) I certify that inpatient psychiatric hospital services are medically necessary. Evaluation and treatment and/or diagnostic testing are expected to improve the patient's condition. The patient needs on a daily basis, active treatment furnished directly by or requiring the supervision of inpatient psychiatric facility personnel. Estimated Total Length of Stay (Days): 14 Plans for Post Hospital Care: Home Review of Systems All other systems reviewed negative except as stated in HPI [facility] - History History Provided By: Patient, Medical Record - Medical History Medical History: Medical History (Last Reviewed 08/18/18 @ 13:52 by Anastacio Tovar MD) GERD (gastroesophageal reflux disease) Hematuria Schizophrenia - Family History Family History: Family History (Last Reviewed 08/18/18 @ 13:52 by Anastacio Tovar MD) Other Family history normal - Tobacco History Second Hand Smoke Exposure: Yes Tobacco Use In Past 30 Days: Yes Smoking Status: Current every day smoker Tobacco Type: Cigarettes - Alcohol History How Often Do You Have a Drink Containing Alcohol: Monthly or less - Substance Use History Substance History: No History of Abuse - Immunization History Tetanus Immunization: Never Vaccinated Hx Influenza Vaccine This Season: No Quality Measures - Psychiatric History Psychological trauma history: Unable to assess as patient refusing to cooperate. Violence risk to others in the last 6 months: Low Violence risk to self in the last 6 months: Low - Substance Abuse History Drug or alcohol use in the past 12 months: Unable to assess as patient refusing to cooperate. - Patient Strengths Patient's strengths (minimum of 2): Verbal, has access to mental health services Medications and Allergies Active Medications: Active Medications Al Hydrox/Mg Hydrox/Simethicone (Mag-Al Plus Susp Liq) 30 ml PO Q6H PRN PRN Reason: DYSPEPSIA Al Hydroxide/Mg Hydroxide (Milk Of Magnesia Liq) 30 ml PO Q12H PRN PRN Reason: Mild Constipation Bisacodyl (Dulcolax Supp) 10 mg RECTAL DAILY PRN PRN Reason: SEVERE CONSITIPATION Bupropion HCl (Wellbutrin Sr) 200 mg PO BID [facility] Last Admin: 08/18/18 08:47 Dose: 200 mg Diphenhydramine HCl (Benadryl) 50 mg PO HS PRN PRN Reason: INSOMNIA Lactulose (Lactulose Liq) 30 ml PO DAILY PRN PRN Reason: SEVERE CONSITIPATION Levofloxacin (Levaquin) 750 mg PO [facility] Last Admin: 08/17/18 21:44 Dose: Not Given Lorazepam (Ativan) 1 mg PO Q6H PRN PRN Reason: MODERATE TO SEVERE ANXIETY Metronidazole (Flagyl) 500 mg PO Q8HR [facility] Last Admin: 08/18/18 05:08 Dose: Not Given Senna/Docusate Sodium (Valencia-Colace) 1 tab PO BID [facility] Last Admin: 08/18/18 08:49 Dose: Not Given Sennosides (Senokot) 17.2 mg PO Q12H PRN PRN Reason: Moderate Constipation Ziprasidone (Geodon) 80 mg PO [facility] Last Admin: 08/17/18 20:39 Dose: Not Given Allergies Allergy/AdvReac Type Severity Reaction Status Date / Time No Known Allergies Allergy Unverified 08/09/18 10:08 Home Medications Medication Instructions Recorded Confirmed Type bupropion HCl [Wellbutrin SR] 200 mg PO BID 08/09/18 08/09/18 History Exam Vital signs: Vital Signs 08/17/18 18:12 08/18/18 06:00 Temperature 96 F L 98.8 F Pulse Rate 99 H 82 Respiratory Rate 17 18 Blood Pressure 124/75 125/77 Pulse Oximetry 99 97 Intake & Output 08/17/18 08/18/18 08/18/18 18:59 06:59 18:59 Weight 66.2 kg Other: Weight On Admission 66.2 kg Narrative: Unable to fully assess but not noted to be in acute distress, no gross motor abnormalities noted, no noted tremor or EPS. No psychomotor agitation or retardation. - Constitutional no acute distress Mental Status Examination Appearance: Appropriate, Other (In hospital [facility]) Consciousness: Alert Orientation: Person, Place Motor Activity: Normal gait Speech: Unremarkable Language: Adequate Fund of Knowledge: Inadequate Attention and Concentration: Adequate Mood: Angry, Irritable Affect: Irritable Thought Process & Associations: Other ([place]) Thought Content: Other (Unable to assess as patient refusing to cooperate.) Hallucination Type: Other (Unable to assess as patient refusing to cooperate.) Delusion Type: Paranoid Suicidal Ideation: No Suicidal Plan: No Suicidal Intention: No Homicidal Ideation: No Homicidal Plan: No Homicidal Intention: No Insight: Poor Judgment: Poor Assessment and Plan - Assessment (1) Schizophrenia Code(s): F20.9 - Schizophrenia, unspecified Status: Acute - Plan Plan: Estimated LOS: [] days Patient is a 58-year-old man who carries a diagnosis schizophrenia with previous psychiatric admissions, unknown if previous suicide attempts, with history of state hospitalization and history of incarceration as per chart was transferred from the medical service due to noted paranoia, internal preoccupation and unable to participate in medical decision making due to symptomatology which patient requires inpatient stabilization. Patient will continue ziprasidone as well as Wellbutrin once healthcare surrogate has been established, particularly with patient's brother, Anika Morales, home phone number and chart is incorrect. We will await patient's brother to visit and provide a correct telephone number to contact to obtain consent for his psychiatric medications and treatment. We will continue to monitor mood and behavior. We will continue to encourage patient to adhere to medical recommendations specifically to antibiotic treatment for his recent hepatic abscess. Hospitalist input appreciated. Petition for involuntary hospitalization started, second opinion requested. Discharge planning in progress. Justification for Continued Inpatient Stay: At risk of further decompensation a lower level of care.
--- NOTE | 2018-08-18 13:56 | P.CONPSY ---
Provisional Diagnosis Admission Date: August 17, 2018 13:45 [place] I.: Schizophrenia History of Present Illness Service: Psychiatry Consult date: 08/18/18 Requesting Physician: Rogelio Gilmore Reason for Consult: Second opinion petition supporting [place] act Primary Care Provider: UNKNOWN History of Present Illness: Patient is a 58-year-old white male admitted to Dr. Rogelio Gilmore service under the Benites act. Dr. Gilmore H&P reviewed and agreed with. Dr. Gilmore has signed first opinion petition supporting [place]ites act. Patient seen by me in his room with medical student Marlene. Patient is sitting in the corner vigilant angry irritable and paranoid. When attempting to speak with him he glared at me as story was and then pointed his arm telling me to leave the room. At this time I feel patient does meet [place] act criteria for involuntary psychiatric hospitalization. Thus I will cosign second opinion petition supporting [place] act Review of Systems All other systems reviewed negative except as stated in HPI [facility] - History History Provided By: Patient - Medical History Medical History: Medical History (Last Reviewed 08/18/18 @ 13:52 by Anastacio Tovar MD) GERD (gastroesophageal reflux disease) Hematuria Schizophrenia - Family History Family History: Family History (Last Reviewed 08/18/18 @ 13:52 by Anastacio Tovar MD) Other Family history normal - Social History I have reviewed the patient's Social History: Yes - Tobacco History Second Hand Smoke Exposure: Yes Tobacco Use In Past 30 Days: Yes Smoking Status: Current every day smoker Tobacco Type: Cigarettes - Alcohol History How Often Do You Have a Drink Containing Alcohol: Monthly or less - Substance Use History Substance History: No History of Abuse - Immunization History Tetanus Immunization: Never Vaccinated Hx Influenza Vaccine This Season: No Medications and Allergies Active Medications: Active Medications Al Hydrox/Mg Hydrox/Simethicone (Mag-Al Plus Susp Liq) 30 ml PO Q6H PRN PRN Reason: DYSPEPSIA Al Hydroxide/Mg Hydroxide (Milk Of Magnesia Liq) 30 ml PO Q12H PRN PRN Reason: Mild Constipation Bisacodyl (Dulcolax Supp) 10 mg RECTAL DAILY PRN PRN Reason: SEVERE CONSITIPATION Bupropion HCl (Wellbutrin Sr) 200 mg PO BID [facility] Last Admin: 08/18/18 08:47 Dose: 200 mg Diphenhydramine HCl (Benadryl) 50 mg PO HS PRN PRN Reason: INSOMNIA Lactulose (Lactulose Liq) 30 ml PO DAILY PRN PRN Reason: SEVERE CONSITIPATION Levofloxacin (Levaquin) 750 mg PO [facility] Last Admin: 08/17/18 21:44 Dose: Not Given Lorazepam (Ativan) 1 mg PO Q6H PRN PRN Reason: MODERATE TO SEVERE ANXIETY Metronidazole (Flagyl) 500 mg PO Q8HR [facility] Last Admin: 08/18/18 05:08 Dose: Not Given Senna/Docusate Sodium (Valencia-Colace) 1 tab PO BID [facility] Last Admin: 08/18/18 08:49 Dose: Not Given Sennosides (Senokot) 17.2 mg PO Q12H PRN PRN Reason: Moderate Constipation Ziprasidone (Geodon) 80 mg PO [facility] Last Admin: 08/17/18 20:39 Dose: Not Given Allergies Allergy/AdvReac Type Severity Reaction Status Date / Time No Known Allergies Allergy Unverified 08/09/18 10:08 Home Medications Medication Instructions Recorded Confirmed Type bupropion HCl [Wellbutrin SR] 200 mg PO BID 08/09/18 08/09/18 History Exam Vital signs: Vital Signs 08/17/18 18:12 08/18/18 06:00 Temperature 96 F L 98.8 F Pulse Rate 99 H 82 Respiratory Rate 17 18 Blood Pressure 124/75 125/77 Pulse Oximetry 99 97 Intake & Output 08/17/18 08/18/18 08/18/18 18:59 06:59 18:59 Intake Total 120 / 120 Balance 120 / 120 Weight 66.2 kg Intake: Oral 120 / 120 Other: Weight On Admission 66.2 kg Narrative: Patient seen quietly on chair in corner of his room he is in no acute distress, he is in no respiratory distress, no complaints of chest pain or abdominal pain. Patient moving all 4 extremities without difficulty Mental Status Examination Appearance: Disheveled Consciousness: Alert Orientation: Person Motor Activity: Normal gait Speech: Unremarkable Language: Adequate Fund of Knowledge: Inadequate Attention and Concentration: Easily distracted Memory: Unremarkable (Poor) Mood: Irritable Affect: Other (Slight increased range and intensity) Thought Process & Associations: Loose associations Thought Content: Other (Disorganized) Hallucination Type: Other (Appears to be responding to internal stimuli) Delusion Type: Paranoid Suicidal Ideation: No Suicidal Plan: No Suicidal Intention: No Homicidal Ideation: No Homicidal Plan: No Homicidal Intention: No Insight: Poor Judgment: Poor (Vague and angry when asked about suicidality or homicidality) Assessment and Plan - Assessment (1) Schizophrenia Code(s): F20.9 - Schizophrenia, unspecified Status: Acute - Plan Plan: Patient psychotic at this time. Patient meets criteria for involuntary psychiatric hospitalization under the Benites act thus I will cosign second opinion petition supporting [place] act Justification for Continued Inpatient Stay: At this time patient would decompensate a place to the lower level of care Discharge Planning: To be determined
--- NOTE | 2018-08-18 18:19 | P.CON ---
History of Present Illness Service: [facility] Consult date: 08/18/18 Requesting Physician: Rogelio Gilmore Reason for Consult: Medical management Primary Care Provider: UNKNOWN Chief Complaint: schizophrenia History of Present Illness: 58-year-old male with a history of schizophrenia recently admitted on 08/09 with RUQ abdominal pain, fever, and diarrhea. CT A/P revealed what appeared to be hepatic abscess. ID and IR consulted. Patient underwent CT-guided drainage of the abscess on 08/10. It was recommended the patient be treated with broad- spectrum IV antibiotics, but unfortunately the patient has been refusing antibiotics for the past couple days. Psychiatry is also following was consulted during his hospitalization and it was recommended that patient be transferred to Medical psych unit. [facility] is now consulted to assist with ongoing medical management. Nurse reports that patient continues to refuse his medications. No one has been established to consent for psychotropic medications. Brother will be visiting today and possibly consent for these. Patient continues to refuse antibiotics, additionally he has not been eating and drinking much. No reported fevers, nausea, vomiting or diarrhea per nursing staff. I go in to see patient however he does not allow me to enter the room and shakes his head and says repeatedly "no thank you". Review of Systems All other systems reviewed negative except as stated in HPI [facility] - History History Provided By: Patient, Medical Record - Medical History Medical History: Medical History (Last Reviewed 08/18/18 @ 18:29 by Stefani Marquez) GERD (gastroesophageal reflux disease) Hematuria Schizophrenia - Family History Family History: Family History (Last Reviewed 08/18/18 @ 13:52 by Anastacio Tovar MD) Other Family history normal - Tobacco History Second Hand Smoke Exposure: Yes Tobacco Use In Past 30 Days: Yes Smoking Status: Current every day smoker Tobacco Type: Cigarettes - Alcohol History How Often Do You Have a Drink Containing Alcohol: Monthly or less - Substance Use History Substance History: No History of Abuse - Immunization History Tetanus Immunization: Never Vaccinated Hx Influenza Vaccine This Season: No Medications and Allergies Active Medications: Active Medications Al Hydrox/Mg Hydrox/Simethicone (Mag-Al Plus Susp Liq) 30 ml PO Q6H PRN PRN Reason: DYSPEPSIA Al Hydroxide/Mg Hydroxide (Milk Of Magnesia Liq) 30 ml PO Q12H PRN PRN Reason: Mild Constipation Bisacodyl (Dulcolax Supp) 10 mg RECTAL DAILY PRN PRN Reason: SEVERE CONSITIPATION Bupropion HCl (Wellbutrin Sr) 200 mg PO BID [facility] Last Admin: 08/18/18 08:47 Dose: 200 mg Diphenhydramine HCl (Benadryl) 50 mg PO HS PRN PRN Reason: INSOMNIA Lactulose (Lactulose Liq) 30 ml PO DAILY PRN PRN Reason: SEVERE CONSITIPATION Levofloxacin (Levaquin) 750 mg PO [facility] Last Admin: 08/17/18 21:44 Dose: Not Given Lorazepam (Ativan) 1 mg PO Q6H PRN PRN Reason: MODERATE TO SEVERE ANXIETY Metronidazole (Flagyl) 500 mg PO Q8HR [facility] Last Admin: 08/18/18 14:17 Dose: Not Given Senna/Docusate Sodium (Valencia-Colace) 1 tab PO BID [facility] Last Admin: 08/18/18 08:49 Dose: Not Given Sennosides (Senokot) 17.2 mg PO Q12H PRN PRN Reason: Moderate Constipation Ziprasidone (Geodon) 80 mg PO [facility] Last Admin: 08/17/18 20:39 Dose: Not Given Allergies Allergy/AdvReac Type Severity Reaction Status Date / Time No Known Allergies Allergy Unverified 08/09/18 10:08 Home Medications Medication Instructions Recorded Confirmed Type bupropion HCl [Wellbutrin SR] 200 mg PO BID 08/09/18 08/09/18 History Physical Exam Vital signs: Vital Signs 08/18/18 06:00 08/18/18 17:34 Temperature 98.8 F 97.8 F Pulse Rate 82 88 Respiratory Rate 18 16 Blood Pressure 125/77 123/69 Pulse Oximetry 97 97 Intake & Output 08/17/18 08/18/18 08/18/18 18:59 06:59 18:59 Intake Total 120 / 120 Balance 120 / 120 Weight 66.2 kg Intake: Oral 120 / 120 Other: Weight On Admission 66.2 kg Narrative: Patient does not allow for physical exam. His speech is clear and he appears to be moving all extremities without difficulty. Assessment and Plan - Plan 58-year-old male with a history of schizophrenia with hepatic abscess who underwent drainage and drain insertion by IR. ID consulted, however patient continues to refuse medications. Psych made recommendations to transfer patient to medical psych unit with a hospitalist consult. 1. Hepatic abscess CT A/P revealed a 4.5 x 3.8 cm mass containing septations in the inferior segment of the liver with adjacent pericapsular inflammatory stranding and suspected segmental thrombosis probable hepatic vein branch IR consulted and patient underwent CT-guided drainage on 08/10 with approximately 20 cc of purulent fluid removed and sent for analysis. - Drain removed 08/18 ID consulted earlier in course and recommending IV vancomycin and Zosyn. However, patient has been refusing IV antibiotics off and on since 08/11 and is no longer allowing ID to see him and he is refusing medications. -Check labs in the a.m. 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 antibiotics Brother to possibly consent for psych medications - Not eating much, start IVF if he allows. DVT prophylaxis: ambulatory Thank you Dr. Gilmore for this consultation, will continue to follow along with you. Discussed Condition With: TANYA
[2018-08-18] MEDS: Sod Chloride 0.9% Inj 1,000 ML IV.CONT SCH (19:59)
[2018-08-18] MEDS: levoFLOXacin 750 MG Tablet PO SCH (21:22)
[2018-08-19] MEDS: Sod Chloride 0.9% Inj 1,000 ML IV.CONT SCH ×2 (06:02→16:24)
[2018-08-19] MEDS: metroNIDAZOLE 500 MG Tablet PO SCH ×2 (06:08→15:05)
--- NOTE | 2018-08-19 08:36 | P.PNPSY ---
Subjective Remarks: Patient seen for follow-up, chart reviewed. Discussion with nursing staff reported the patient refusing antibiotic treatment, continues with to be noted to be paranoid but slept last night as opposed to 2 nights ago where patient spent the night behind the door or sitting in the closet. Patient was found ambulating on the unit noted to be superficially cooperative refusing to engage in interview stating that he did not want to talk but with persistent encouragement was able to listen to recommendations. It was recommended the patient to allow IV antibiotics to avoid further complications from his recent hepatic abscess which he appeared to be acknowledging and did not initially refuse the idea of having IV antibiotics as opposed to taking it p.o. Patient tolerated for a few minutes engaging interview but then walked away stating that he did not want to speak any further. Patient continues to be noted to be very paranoid with his food. Review of Systems All other systems reviewed negative except as stated in HPI Mental Status Examination Appearance: Appropriate, Other (In [facility]) Consciousness: Alert Orientation: Person, Place Motor Activity: Normal gait Speech: Unremarkable Language: Adequate Fund of Knowledge: Inadequate Attention and Concentration: Adequate Memory: Unremarkable (Poor) Mood: Oppositional Affect: Irritable Thought Process & Associations: Other ([place]) Thought Content: Other (Unable to assess as patient refusing to cooperate.) Delusion Type: Paranoid Suicidal Ideation: No Suicidal Plan: No Suicidal Intention: No Homicidal Ideation: No Homicidal Plan: No Homicidal Intention: No Insight: Poor Judgment: Poor Assessment and Plan - Assessment (1) Schizophrenia Code(s): F20.9 - Schizophrenia, unspecified Status: Acute - Plan Plan: Patient this time continues with limited cooperation with interview but appears to consider having IV antibiotics as he is refusing p.o. antibiotics at this time. We will continue to attempt to have brother serve as health care surrogate and guardian advocate to consent for his psychiatric medication treatment. We will continue to monitor mood and behavior. Discharge planning a progress. Justification for Continued Inpatient Stay: At risk of further decompensation a lower level of care.
[2018-08-19] MEDS: Senna/Docusate Sodium 8.6/50 MG Tablet PO SCH ×2 (08:41→20:08)
[2018-08-19] MEDS: buPROPion 100 MG ER 12 HR Tablet PO SCH ×2 (09:43→20:08)
--- NOTE | 2018-08-19 18:13 | P.PN ---
Subjective Interval history: Follow-up for hepatic abscess. Patient is seen resting in bed and appears to be comfortable in no acute distress. He does not speak to me and signals me out of his room repeatedly. I ask if he is in pain and he shakes his head no. Discuss the importance of IV antibiotics due to his infection and he continues to shake his head no. Ask if he is willing to see the infectious disease doctor return to see him or take his IV antibiotics however continues to shake his head no. Nurse reports patient was talkative earlier in the day. Refusing oral antibiotics, no consent yet for psychotropic medications as brother has not been by to consent for these. Spoke with , patient is agreeable to IVF , will try and restart IV antibiotics. Physical Exam Vital signs: Vital Signs 08/19/18 05:58 Temperature 98.2 F Pulse Rate 96 H Respiratory Rate 18 Blood Pressure 122/74 Pulse Oximetry 98 Intake & Output 08/18/18 08/19/18 08/19/18 18:59 06:59 18:59 Intake Total 120 / 120 999.1 / 999.1 1919 Balance 120 / 120 999.1 / 999.1 1919 Intake: IV 999.1 / 999.1 0 / 0 NS Inj 1,000 ML @ 100 mls/hr IV 999.1 / 999.1 0 / 0 .CONT .Q10H MAL Rx#:[id number] Oral 120 / 120 1919 Narrative: Seen resting in bed. Does not allow for physical exam. He appears comfortable, breathing is nonlabored, moves all extremities. Assessment and Plan - Plan 58-year-old male with a history of schizophrenia with hepatic abscess who underwent drainage and drain insertion by IR. ID consulted, however patient continues to refuse medications. Psych made recommendations to transfer patient to medical psych unit with a hospitalist consult. 1. Hepatic abscess CT A/P revealed a 4.5 x 3.8 cm mass containing septations in the inferior segment of the liver with adjacent pericapsular inflammatory stranding and suspected segmental thrombosis probable hepatic vein branch IR consulted and patient underwent CT-guided drainage on 08/10 with approximately 20 cc of purulent fluid removed and sent for analysis. - Drain removed 08/18 ID consulted earlier in course and recommending IV vancomycin and Zosyn. However, patient has been refusing IV antibiotics off and on since 08/11 and is no longer allowing ID to see him and he is refusing medications. 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 Patient agreeable to IVF will try and restart IV antibiotics. 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 DVT prophylaxis: ambulatory Discussed Condition With: Patient, RN and
[2018-08-19] MEDS: Piperacil/Tazo 4.5 GM Premix 4.5 GM/100 ML BAG IV.SIG SCH (20:11)
[2018-08-20] MEDS: Piperacil/Tazo 4.5 GM Premix 4.5 GM/100 ML BAG IV.SIG SCH ×4 (01:14→20:29)
[2018-08-20] MEDS: Sod Chloride 0.9% Inj 1,000 ML IV.CONT SCH ×3 (01:39→21:57)
[2018-08-20] MEDS: Senna/Docusate Sodium 8.6/50 MG Tablet PO SCH ×2 (08:33→20:31)
[2018-08-20] MEDS: buPROPion 100 MG ER 12 HR Tablet PO SCH ×2 (08:34→20:35)
--- NOTE | 2018-08-20 09:27 | P.PNPSY ---
Subjective Remarks: Patient seen for follow, chart reviewed. Discussion nursing staff reported the patient paranoid, refusing everything, refusing labs as well. Patient was found ambulating on the unit earlier but found sitting in hospital bed with poor eye contact and refusing to engage in interview. Patient only responded to when he was recommended patient resume IV antibiotics which she simply nodded no. Patient was encouraged to comply with recommendations. Review of Systems All other systems reviewed negative except as stated in HPI Mental Status Examination Appearance: Appropriate, Other (In [facility]) Consciousness: Alert Orientation: Person, Place Motor Activity: Normal gait Speech: Other (Selectively mute) Language: Adequate Fund of Knowledge: Inadequate Attention and Concentration: Adequate Memory: Unremarkable (Poor) Mood: Oppositional Affect: Irritable Thought Process & Associations: Other ([place]) Thought Content: Other (Unable to assess as patient refusing to cooperate.) Hallucination Type: Other (Unable to assess as patient refusing to cooperate.) Delusion Type: Paranoid Suicidal Ideation: No Suicidal Plan: No Suicidal Intention: No Homicidal Ideation: No Homicidal Plan: No Homicidal Intention: No Insight: Poor Judgment: Poor Assessment and Plan - Assessment (1) Schizophrenia Code(s): F20.9 - Schizophrenia, unspecified Status: Acute - Plan Plan: Patient this time continues to be selectively mute refused to engage in interview but responds at times with nodding and refusing recommendations as per prior medical team for IV antibiotics. Patient continued to be noted to be paranoid and internally preoccupied with poor nutritional intake. Treatment team continues to search to contact patient's brother to serve as health care surrogate and guardian advocate to be able to obtain consent for psychotropic medications. We will continue to monitor mood and behavior. Discharge planning a progress. Justification for Continued Inpatient Stay: At risk of further decompensation a lower level of care.
--- NOTE | 2018-08-20 09:31 | P.PN ---
Subjective Interval history: Follow-up visit for hepatic abscess. Patient seen ambulating in the [place] with IV pole. He continues to refuse exam and is nonverbal with me today. Nurse reports that patient has been refusing his IV medications since these were started, patient additionally is not eating or drinking. Psychiatrist to attempt reaching brother for psychotropic medication consent. Physical Exam Vital signs: Vital Signs 08/20/18 05:55 Temperature 98.1 F Pulse Rate 86 Respiratory Rate 17 Blood Pressure 115/76 Pulse Oximetry 97 Intake & Output 08/19/18 08/20/18 08/20/18 18:59 06:59 18:59 Intake Total 1920 / 1920 1240 / 1240 Balance 1920 / 1920 1240 / 1240 Intake: IV 0 / 0 1000 / 1000 NS Inj 1,000 ML @ 100 mls/hr IV 0 / 0 1000 / 1000 .CONT .Q10H MAL Rx#:[id number] Oral 1920 / 1920 240 / 240 Other: # Voids 2 Narrative: Patient seen ambulating in the [place], does not allow for physical exam. Does not appear to be in any acute distress or in any pain. Assessment and Plan - Plan 58-year-old male with a history of schizophrenia with hepatic abscess who underwent drainage and drain insertion by IR. ID consulted, however patient continues to refuse medications. Psych made recommendations to transfer patient to medical psych unit with a hospitalist consult. 1. Hepatic abscess CT A/P revealed a 4.5 x 3.8 cm mass containing septations in the inferior segment of the liver with adjacent pericapsular inflammatory stranding and suspected segmental thrombosis probable hepatic vein branch IR consulted and patient underwent CT-guided drainage on 08/10 with approximately 20 cc of purulent fluid removed and sent for analysis. - Drain removed 08/18 ID consulted earlier in course and recommending IV vancomycin and Zosyn. However, patient has been refusing IV antibiotics off and on since 08/11 and is no longer allowing ID to see him and he is refusing medications. -Blood cultures 08/09 with two bottles growing Fusobacterium species. Restart IV antibiotics. IV Zosyn and Flagyl however patient has been refusing these. 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 DVT prophylaxis: ambulatory Discussed Condition With: Discussed with patient and RN
[2018-08-20 16:21] VITALS: BP 120/70; PULSE 87; RESP 18; TEMP 99; O2SAT 99
[2018-08-21] MEDS: Piperacil/Tazo 4.5 GM Premix 4.5 GM/100 ML BAG IV.SIG SCH ×4 (01:37→21:13)
[2018-08-21] MEDS: Sod Chloride 0.9% Inj 1,000 ML IV.CONT SCH ×2 (06:17→17:27)
--- NOTE | 2018-08-21 07:55 | P.PN ---
Subjective Interval history: Follow-up visit for hepatic abscess. Patient is seen resting in bed this morning in no acute distress. Is nonverbal this morning with me, non- cooperative with physical exam. Nurse reports patient continues to refuse all of his medications, no other acute events overnight or this morning. Physical Exam Vital signs: Vital Signs 08/20/18 16:20 Temperature 99.0 F Pulse Rate 87 Respiratory Rate 18 Blood Pressure 120/70 Pulse Oximetry 99 Intake & Output 08/20/18 08/21/18 08/21/18 18:59 06:59 18:59 Intake Total 1360 / 1360 1360 / 1360 Balance 1360 / 1360 1360 / 1360 Weight 65.8 kg Intake: IV 1000 / 1000 1000 / 1000 NS Inj 1,000 ML @ 100 mls/hr IV 1000 / 1000 1000 / 1000 .CONT .Q10H MAL Rx#:[id number] Oral 360 / 360 360 / 360 Other: # Voids 3 1 Narrative: Patient seen resting in bed, does not allow for physical exam. Does not appear to be in any acute distress or in any pain. Assessment and Plan - Plan 58-year-old male with a history of schizophrenia with hepatic abscess who underwent drainage and drain insertion by IR. ID consulted, however patient continues to refuse medications. Psych made recommendations to transfer patient to medical psych unit with a hospitalist consult. 1. Hepatic abscess CT A/P revealed a 4.5 x 3.8 cm mass containing septations in the inferior segment of the liver with adjacent pericapsular inflammatory stranding and suspected segmental thrombosis probable hepatic vein branch IR consulted and patient underwent CT-guided drainage on 08/10 with approximately 20 cc of purulent fluid removed and sent for analysis. - Drain removed 08/18 ID consulted earlier in course and recommending IV vancomycin and Zosyn. However, patient has been refusing IV antibiotics off and on since 08/11 and is no longer allowing ID to see him and he is refusing medications. -Blood cultures 08/09 with two bottles growing Fusobacterium species. Restart IV antibiotics. IV Zosyn and Flagyl however patient has been refusing these. Hopefully when psych medications are restarted he will be compliant, will need final recommendations from ID. 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 DVT prophylaxis: ambulatory Discussed Condition With: Patient and RN. Discharge Planning: Pending psych discharge
--- NOTE | 2018-08-21 09:22 | P.TTN ---
- Patient Problems Problems: 1. Discharge planning 2. Medication compliance 3. Knowledge deficit 4. Lack of coping skills - Progress Toward Goals Provider Present: Dr. Hema Gilmore Provider Input: Pt accepting IV fluids but refusing ABX for Liver Abcess, Pt's brother was initially involved but now is unable to be reached. Pt expected to be on court docket thurs. Pt is selectively mute, will not engage with staff, including MD. Pt unable to care for self. Psychiatric Counselors Present: Thong Shah Jr., [facility] Psychiatric Therapist Input: OTR input is pt will not engage and express needs or preferences. Group Spec/RT/OT/ESTRADA Present: NATALIE Mehta, Mitchel Alvarez, OT Group Spec/RT/OT/ESTRADA Input: Pt does not attend groups; pt refusals Additional Input: Pt unable to care for self, discharge plan is for pt to attend court for legal input/considerations/options. - Documentation Teaching Recipient: Patient
[2018-08-21] MEDS: Senna/Docusate Sodium 8.6/50 MG Tablet PO SCH ×2 (10:41→21:14)
[2018-08-21] MEDS: buPROPion 100 MG ER 12 HR Tablet PO SCH ×3 (10:41→21:15)
--- NOTE | 2018-08-21 16:49 | P.PNPSY ---
Subjective Remarks: Patient seen for follow-up, chart reviewed. Discussion with nursing staff reported that patient patient continues to be paranoid refusing antibiotic treatment but noted to be eating and drinking. Patient was found lying hospital bed refusing to engage in interview, discussed patient currently under involuntary hospitalization patient set up and began to question how long the patient was required to be in the hospital. Patient was explained process of presented to mental health court for involuntary hospitalization and was encouraged to comply with recommendations for medical stabilization as well as psychiatric. Patient continues to refuse to engage in interview stating "we will talk with the library circulation department chief". Patient's brother has not been located to consent for psychiatric stabilization as of yet. Review of Systems All other systems reviewed negative except as stated in HPI Mental Status Examination Appearance: Appropriate, Other (In hospital [facility]) Consciousness: Alert Orientation: Person, Place Motor Activity: Normal gait Speech: Other (Selectively mute) Language: Adequate Fund of Knowledge: Inadequate Attention and Concentration: Adequate Memory: Unremarkable (Poor) Mood: Oppositional Affect: Irritable Thought Process & Associations: Other ([place]) Thought Content: Other (Unable to assess as patient refusing to cooperate.) Hallucination Type: Other (Unable to assess as patient refusing to cooperate.) Delusion Type: Paranoid Suicidal Ideation: No Suicidal Plan: No Suicidal Intention: No Homicidal Ideation: No Homicidal Plan: No Homicidal Intention: No Insight: Poor Judgment: Poor Assessment and Plan - Assessment (1) Schizophrenia Code(s): F20.9 - Schizophrenia, unspecified Status: Acute - Plan Plan: Patient continues to refuse to engage in interview with limited interactions along with speaking about involuntary hospitalization. Patient continues to refuse labs continues to refuse IV antibiotics. Patient's brother continues to be required to serve as health care surrogate so patient can receive psychiatric medication treatment. Continue to monitor mood and behavior. Discharge planning a progress. Justification for Continued Inpatient Stay: At risk of further decompensation at lower level care.
[2018-08-22] MEDS: Sod Chloride 0.9% Inj 1,000 ML IV.CONT SCH ×3 (03:27→22:58)
[2018-08-22] MEDS: Piperacil/Tazo 4.5 GM Premix 4.5 GM/100 ML BAG IV.SIG SCH ×4 (03:27→22:54)
[2018-08-22] MEDS: buPROPion 100 MG ER 12 HR Tablet PO SCH ×2 (08:21→22:55)
[2018-08-22] MEDS: Senna/Docusate Sodium 8.6/50 MG Tablet PO SCH ×2 (08:21→22:55)
--- NOTE | 2018-08-22 15:41 | P.PN ---
Subjective Interval history: Follow-up on patient with sepsis, liver abscess. Patient seen, refusing exam. As I walk in the room patient pulls the covers up over his head. He is refusing examination. Attempted to discuss importance of treatment and concern for worsening infection, sepsis, organ failure. Patient states "this is a mockery" and tells me to "stop pretending I am a medical professional". He repetitively tells me to leave the room. Discussed with nursing staff, Dr. Gilmore has been attempting to reach the patient's brother for consent to begin treatment as patient lacks capacity. Physical Exam Vital signs: Intake & Output 08/21/18 08/22/18 08/22/18 18:59 06:59 18:59 Intake Total 850 / 850 240 / 240 Balance 850 / 850 240 / 240 Intake: IV 850 / 850 NS Inj 1,000 ML @ 100 mls/hr IV 850 / 850 .CONT .Q10H MAL Rx#:[id number] Oral 0 / 0 240 / 240 Other: # Voids 1 Narrative: Patient encountered awake, resting in bed, keeps the covers up over his head. Refusing examination. Assessment and Plan - Plan 58-year-old male with a history of schizophrenia with hepatic abscess who underwent drainage and drain insertion by IR. ID consulted, however patient continues to refuse medications. Psych made recommendations to transfer patient to medical psych unit with a hospitalist consult. Hepatic abscess Fusobacterium bacteremia, 12/[address] A/P revealed a 4.5 x 3.8 cm mass containing septations in the inferior segment of the liver with adjacent pericapsular inflammatory stranding and suspected segmental thrombosis probable hepatic vein branch IR consulted and patient underwent CT-guided drainage on 08/10 with approximately 20 cc of purulent fluid removed and sent for analysis. - Drain removed 08/18 ID consulted earlier in course and recommending IV vancomycin and Zosyn. However, patient has been refusing IV antibiotics off and on since 08/11 and is no longer allowing ID to see him and he is refusing medications. -Blood cultures 08/09 with two bottles growing Fusobacterium species. Restart IV antibiotics. IV Zosyn and Flagyl however patient has been refusing these. Hopefully when psych medications are restarted he will be compliant, will need final recommendations from ID. - Continues to refuse labs, vitals monitoring, all medications -08/[address] staff[address] Gilmore has attempted multiple times to contact patient's brother to initiate treatment as patient lacks capacity. Patient to be presented to mental health court on . Schizophrenia Mutism and refusal of care - primary team attempting to contact brother for consent to initiate treatment DVT prophylaxis: ambulatory Patient repetitively refuses any medical treatment. [facility] will sign off. Please reconsult once patient is less psychotic and agreeable to medical care. Code Status: Full Discussed Condition With: patient, nursing staff
--- NOTE | 2018-08-22 16:15 | P.PNPSY ---
Subjective Remarks: Patient seen for follow-up, chart reviewed. Discussion with nursing staff reported that patient continues to refuse labs continues to refuse IV fluids with poor p.o. intake. Patient was found lying hospital bed noted to be refusing to engage in interview but suddenly sits up and states "called a hoisting engineer pile driving " and when reminded that previous the patient had referred to had stated not knowing the patient. Patient noted to be upset stating "tell him that God is sick and he wants him to come". Patient was encouraged to comply with treatment specifically laid back down and refuse to fluids or delusions. Review of Systems All other systems reviewed negative except as stated in HPI Mental Status Examination Appearance: Appropriate, Other (In hospital [facility]) Consciousness: Alert Orientation: Person, Place Motor Activity: Normal gait Speech: Other (Selectively mute) Language: Adequate Fund of Knowledge: Inadequate Attention and Concentration: Adequate Memory: Unremarkable (Poor) Mood: Oppositional Affect: Irritable Thought Process & Associations: Other ([place]) Thought Content: Other (Unable to assess as patient refusing to cooperate.) Hallucination Type: Other (Unable to assess as patient refusing to cooperate.) Delusion Type: Paranoid Suicidal Ideation: No Suicidal Plan: No Suicidal Intention: No Homicidal Ideation: No Homicidal Plan: No Homicidal Intention: No Insight: Poor Judgment: Poor Assessment and Plan - Assessment (1) Schizophrenia Code(s): F20.9 - Schizophrenia, unspecified Status: Acute - Plan Plan: Patient continues with paranoia continues to refuse recommendations for p.o. intake. Patient was encouraged to comply with treatment as per hospitalist recommendations. We will continue to await patient's brother to provide consent for psychotropic medications. Continue to monitor mood and behavior. Discharge planning in progress. Justification for Continued Inpatient Stay: At risk for decompensation a low level of care.
[2018-08-23] MEDS: Piperacil/Tazo 4.5 GM Premix 4.5 GM/100 ML BAG IV.SIG SCH ×4 (01:43→20:36)
[2018-08-23] MEDS: buPROPion 100 MG ER 12 HR Tablet PO SCH ×2 (08:31→20:36)
[2018-08-23] MEDS: Senna/Docusate Sodium 8.6/50 MG Tablet PO SCH ×2 (08:31→20:36)
[2018-08-23] MEDS: Sod Chloride 0.9% Inj 1,000 ML IV.CONT SCH ×2 (08:31→17:50)
--- NOTE | 2018-08-23 12:02 | P.TTN ---
- Patient Problems Problems: 1. Discharge planning 2. Medication compliance 3. Knowledge deficit 4. Lack of coping skills - Progress Toward Goals Provider Present: Dr. Reinaldo Tovar, Dr. Hema Gilmore Provider Input: 08/23/18: pt continues to be cooperative, compliant with IV fluids, pt's brother visited and is expected to attend court hearing 08/24 with pt to determine disposition. Pt accepting IV fluids but refusing ABX for Liver Abcess, Pt's brother was initially involved but now is unable to be reached. Pt expected to be on court docket thurs. Pt is selectively mute, will not engage with staff, including MD. Pt unable to care for self. Psychiatric Counselors Present: Thong Shah Jr., [facility], Arleen Anderson, [facility] Psychiatric Therapist Input: OTR input is pt will not engage and express needs or preferences. Group Spec/RT/OT/ESTRADA Present: Ngoc Hope, [employer], NATALIE Mehta, Mitchel Alvarez, OT Group Spec/RT/OT/ESTRADA Input: 08/23: pt continues to refuse to attend groups. Pt does not attend groups; pt refusals Additional Input: 08/23/18: pt continues to be cooperative, compliant with IV fluids, pt's brother visited and is expected to attend court hearing 08/24 with pt to determine disposition. Pt unable to care for self, discharge plan is for pt to attend court for legal input/considerations/options. - Documentation Teaching Recipient: Patient
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
[2018-08-24] MEDS: Piperacil/Tazo 4.5 GM Premix 4.5 GM/100 ML BAG IV.SIG SCH (03:21)
[2018-08-24] MEDS: Sod Chloride 0.9% Inj 1,000 ML IV.CONT SCH (06:16)
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
== END 2018-08-24 15:06 | disposition home or self-care (01) ==
LOC: H4EA 13:45
PROVIDERS: ADMIT Student in an Organized Health Care Education/Training Program; ATTEND Student in an Organized Health Care Education/Training Program